=== PATIENT | male | born 1965 | race Caucasian/White ===

== ENCOUNTER → 2016-11-21 | Outpatient (CLI) | payer BC ==
[~2016-11-21] MED LIST: AMPH30CA6 PO; CITA20TA12 PO; MONT10TA21 PO; OLME20TA21 PO; OMEP-10 GT
--- NOTE | 2016-11-21 15:27 | Diagnostic Imaging Report ---
INDICATION: Left hip pain. FINDINGS: Two views of the left hip show no fracture, dislocation, or other acute bony abnormality. There is narrowing of the hip. There is considerable hypertrophic spurring of the femoral head. No avascular necrosis is evident. IMPRESSION: There are degenerative changes present. No acute abnormality is seen. Dictated by: Dictated on workstation # [id number]
== END ==
LOC: RAD 14:41
PROVIDERS: ATTEND Family Medicine
DX: M16.12 Unilateral primary osteoarthritis, left hip (principal)
CPT/HCPCS: 73502

== ENCOUNTER 2017-04-04 14:58 | Outpatient (RCR) | payer BC | END 2017-05-09 14:59 | disposition home or self-care (01) | PROVIDERS: ATTEND Orthopaedic Surgery | DX: Z47.1 Aftercare following joint replacement surgery (principal); Z96.642 Presence of left artificial hip joint ==

== ENCOUNTER 2021-09-21 02:24 | Inpatient (IN) | payer BC ==
[~2021-09-21] VITALS: Ht 167.7 cm; Wt 121.2 kg
[2021-09-21 02:46] LABS: BASOPHILS # (AUTO) 0.1 10^3/uL (0.0-0.1); BASOPHILS % (AUTO) 1 % (0-10); EOSINOPHILS # (AUTO) 0.4 10^3/uL (0.0-0.3); EOSINOPHILS % (AUTO) 3 % (0-10); HEMATOCRIT 41 % (40-54); HEMOGLOBIN 13.3 g/dL (13.3-17.7); LYMPHOCYTES # (AUTO) 1.5 10^3/uL (1.0-4.0); LYMPHOCYTES % (AUTO) 12 % (12-44); MEAN CORPUSCULAR HEMOGLOBIN 29 pg (25-34); MEAN CORPUSCULAR HGB CONC 32 g/dL (32-36); MEAN CORPUSCULAR VOLUME 91 fL (80-99); MONOCYTES # (AUTO) 0.8 10^3/uL (0.0-1.0); MONOCYTES % (AUTO) 7 % (0-12); NEUTROPHILS # (AUTO) 9.4 10^3/uL (1.8-7.8); NEUTROPHILS % (AUTO) 78 % (42-75); PLATELET COUNT 256 10^3/uL (130-400); WHITE BLOOD COUNT 12.1 10^3/uL (4.3-11.0)
--- NOTE | 2021-09-21 02:50 | ED Respiratory ---
General Chief Complaint: Respiratory Problems Stated Complaint: SOB Source: patient (BERNARDO ROJO DO) History of Present Illness Date Seen by Provider: Sep 21, 2021 Time Seen by Provider: 02:35 Initial Comments PT ARRIVES VIA POV FROM HOME C/O SHORTNESS OF BREATH SINCE SATURDAY NIGHT 09/19/21 WORSE WITH LAYING DOWN, OR WITH EXERTION NO CHEST PAIN NO COUGH--JUST FEELS LIKE HE HAS TO CLEAR HIS THROAT NO FEVER/SWEATS/CHILLS HANDS HAVE BEEN SWOLLEN BUT DOES NOT HAVE ANY SWELLING IN LEGS/ FEET OR PAIN IN CALVES NO GI SYMPTOMS STATES HE STARTED A NEW JOB ABOUT 2 MONTHS AGO, AND IS MUCH LESS STRESSFUL THAN HIS PREVIOUS JOB AT [employer] STATES YESTERDAY, HE FELT FINE ALL DAY AT WORK, THEN WHEN HE GOT HOME, WAS WALKING UP THE STAIRS AND FELT SHORT OF BREATH HAS NOT BEEN ABLE TO SLEEP THE LAST 2 NIGHTS DUE TO SHORTNESS OF BREATH WHEN HE LAYS DOWN AND WHEN HE IS SLEEPING. PT STATES NO HISTORY OF SIMILAR PT DID HAVE BRONCHOSCOPY IN 2008 FOR COMPLAINT OF CHRONIC SHORTNESS OF BREATH SINCE ADOLESCENCE. ALL WORK UP'S HAVE BEEN NEGATIVE. PT HAS NEVER BEEN PRESCRIBED ANY MEDICATIONS FOR BREATHING SUCH INHALERS OR OXYGEN HAS HTN, HYPOTHYROIDISM, DEPRESSION/ANXIETY NO CHANGES IN MEDICATIONS OR MISSED DOSES OF MEDICATIONS PT IS NON-SMOKER, RARELY DRINKS ALCOHOL, NO DRUG USE HAS HAD COVID-19 VACCINE X 2--SOMETIME IN 2020--DOES NOT RECALL WHAT MONTH HE HAD THEM, BUT THINKS IT HAS BEEN AT LEAST A YEAR. NO KNOWN SICK CONTACTS. PCP: DR. BOLTON (BERNARDO ROJO DO) Allergies and Home Medications Allergies Coded Allergies: No Known Drug Allergies (Verified , 12/25/07) Patient Home Medication List Home Medication List Reviewed: Yes (MARJORIE BEACH MD) Amphet Asp/Amphet/D-Amphet (Adderall Xr 30 Mg Capsule) 30 Mg Cap.sr.24h, 30 MG PO DAILY, (Reported) Entered as Reported by: KRISTINE WHYTE on 02/02/14756 Benicar Hct (Benicar 20 Mg) 20 Mg Tablet, 1 EACH PO DAILY, (Reported) Entered as Reported by: KRISTINE WHYTE on 02/02/14756 Citalopram Hydrobromide (Celexa) 20 Mg Tablet, 20 MG PO DAILY, (Reported) Entered as Reported by: KRISTINE WHYTE on 02/02/14756 Montelukast Sodium (Singulair) 10 Mg Tablet, 10 MG PO DAILY, (Reported) Entered as Reported by: KRISTINE WHYTE on 02/02/14756 Omeprazole (Prilosec 20 Mg) 20 Mg Capsule.dr, 20 MG GT DAILY, (Reported) Entered as Reported by: KRISTINE WHYTE on 02/02/14756 Review of Systems Review of Systems Constitutional: no symptoms reported; No chills, No diaphoresis, No dizziness, No fever EENTM: no symptoms reported Respiratory: see HPI Cardiovascular: No chest pain; edema; No palpitations, No syncope, No vascular heart diseas Gastrointestinal: no symptoms reported Genitourinary: no symptoms reported Musculoskeletal: no symptoms reported Skin: no symptoms reported Psychiatric/Neurological: No Symptoms Reported Hematologic/Lymphatic: No Symptoms Reported Immunological/Allergic: no symptoms reported (BERNARDO ROJO DO) Past Cgszgat-Kbnzkw-Rzansf Hx Patient Social History Tobacco Use?: No Smoking Status: Never a Smoker Use of E-Cig and/or Vaping dev: No Substance use?: No Alcohol Use?: Yes Alcohol type: Beer, Hard Liquor Alcohol Frequency: Rarely Pt feels they are or have been: No (BERNARDO ROJO DO) Immunizations Up To Date Influenza Vaccine Up-to-Date: No; Not Current Second COVID19 Vaccination John: 2020 (BERNARDO ROJO DO) Past Medical History Surgeries: Yes (BRONCHOSCOPY 09/01/2008 ) Tonsillectomy Respiratory: No Cardiac: Yes Hypertension Neurological: No Genitourinary: No Gastrointestinal: No Musculoskeletal: No Endocrine: Yes (OBESITY) Hypothyroidsim HEENT: No Cancer: No Psychosocial: Yes Anxiety, Depression Integumentary: Yes (TAKES FINASTERIDE FOR MALE PATTERN BALDNESS) Blood Disorders: No (BERNARDO ROJO DO) Physical Exam Vital Signs - First Documented 09/21/21 09/21/21 02:34 02:42 Temp 36.0 Pulse 88 Resp 22 B/P (MAP) 186/99 (128) Pulse Ox 94 O2 Delivery Nasal Cannula O2 Flow Rate 2.00 FiO2 94 (MARJORIE BEACH MD) Capillary Refill : (BERNARDO ROJO DO) Height: 5'7.00" Weight: 270lbs. oz. 122.033114bl; BMI Method: General Appearance: WD/WN, no apparent distress, obese, other (TALKS IN FULL SENTENCES, NO DYSPNEA NOTED ON EXAM. ) Neck: non-tender, normal inspection; No carotid bruit Respiratory: normal breath sounds, no respiratory distress, no accessory muscle use, other (+ ORTHOPNEA) Cardiovascular: normal peripheral pulses, regular rate, rhythm, no edema, no JVD, no murmur; No JVD Gastrointestinal: non tender, soft Extremities: normal inspection, no pedal edema, no calf tenderness, normal capillary refill, other Neurologic/Psychiatric: story analyst II-XII nml as tested, no motor/sensory deficits, alert, normal mood/affect, oriented x 3 Skin: normal color, warm/dry (BERNARDO ROJO DO) Progress/Results/Core Measures Suspected Sepsis SIRS Temperature: Pulse: Respiratory Rate: Laboratory Tests 09/21/21 02:40: White Blood Count 12.1H Blood Pressure / Mean: Laboratory Tests 09/21/21 02:40: Creatinine 1.04, INR Comment 1.0, Platelet Count 256, Total Bilirubin 0.5 (BERNARDO ROJO DO) Results/Orders Lab Results Laboratory Tests Test 09/21/21 02:40 Range/Units White Blood Count 12.1 H 4.3-11.0 10^3/uL Red Blood Count 4.54 4.30-5.52 10^6/uL Hemoglobin 13.3 13.3-17.7 g/dL Hematocrit 41 40-54 % Mean Corpuscular Volume 91 80-99 fL Mean Corpuscular Hemoglobin 29 25-34 pg Mean Corpuscular Hemoglobin Concent 32 32-36 g/dL Red Cell Distribution Width 15.0 H 10.0-14.5 % Platelet Count 256 130-400 10^3/uL Mean Platelet Volume 11.0 9.0-12.2 fL Immature Granulocyte % (Auto) 0 % Neutrophils (%) (Auto) 78 H 42-75 % Lymphocytes (%) (Auto) 12 12-44 % Monocytes (%) (Auto) 7 0-12 % Eosinophils (%) (Auto) 3 0-10 % Basophils (%) (Auto) 1 0-10 % Neutrophils # (Auto) 9.4 H 1.8-7.8 10^3/uL Lymphocytes # (Auto) 1.5 1.0-4.0 10^3/uL Monocytes # (Auto) 0.8 0.0-1.0 10^3/uL Eosinophils # (Auto) 0.4 H 0.0-0.3 10^3/uL Basophils # (Auto) 0.1 0.0-0.1 10^3/uL Immature Granulocyte # (Auto) 0.0 0.0-0.1 10^3/uL Erythrocyte Sedimentation Rate 14 0-30 MM/HR Prothrombin Time 13.6 12.2-14.7 SEC INR Comment 1.0 0.8-1.4 Activated Partial Thromboplast Time 34 24-35 SEC D-Dimer 0.63 H 0.00-0.49 UG/ML Sodium Level 138 135-145 MMOL/L Potassium Level 4.1 3.6-5.0 MMOL/L Chloride Level 104 98-107 MMOL/L Carbon Dioxide Level 23 21-32 MMOL/L Anion Gap 11 5-14 MMOL/L Blood Urea Nitrogen 19 H 7-18 MG/DL Creatinine 1.04 0.60-1.30 MG/DL Estimat Glomerular Filtration Rate 83 BUN/Creatinine Ratio 18 Glucose Level 115 H 70-105 MG/DL Calcium Level 9.1 8.5-10.1 MG/DL Corrected Calcium 9.0 8.5-10.1 MG/DL Magnesium Level 2.1 1.6-2.4 MG/DL Total Bilirubin 0.5 0.1-1.0 MG/DL Aspartate Amino Transf (AST/SGOT) 28 5-34 U/L Alanine Aminotransferase (ALT/SGPT) 33 0-55 U/L Alkaline Phosphatase 95 40-136 U/L Total Creatine Kinase 389 H 30-200 U/L Creatine Kinase MB 6.0 <6.6 NG/ML Myoglobin 86.6 10.0-92.0 NG/ML Troponin I < 0.028 <0.028 NG/ML C-Reactive Protein High Sensitivity 0.50 0.00-0.50 MG/DL B-Type Natriuretic Peptide 271.0 H <100.0 PG/ML Total Protein 7.2 6.4-8.2 GM/DL Albumin 4.1 3.2-4.5 GM/DL Influenza Type A (RT-PCR) Not Detected Not Detecte Influenza Type B (RT-PCR) Not Detected Not Detecte SARS-CoV-2 RNA (RT-PCR) Detected H Not Detecte (MARJORIE BEACH MD) Medications Given in ED Current Medications Medications Dose Ordered Sig/Allison Route Start Time Stop Time Status Last Admin Dose Admin Aspirin 324 mg ONCE ONCE PO 09/21/21 03:45 09/21/21 03:46 DC 09/21/21 03:37 324 MG Dexamethasone Sodium Phosphate 10 mg ONCE ONCE IV 09/21/21 03:15 09/21/21 03:16 DC 09/21/21 03:37 10 MG Furosemide 40 mg ONCE ONCE IVP 09/21/21 03:30 09/21/21 03:31 DC 09/21/21 03:37 40 MG Iohexol 100 ml ONCE ONCE IV 09/21/21 04:45 09/21/21 04:50 DC 09/21/21 04:36 100 ML Nitroglycerin 1 inch ONCE ONCE TOP 09/21/21 03:30 09/21/21 03:31 DC 09/21/21 03:37 1 INCH Sodium Chloride 100 ml ONCE ONCE IV 09/21/21 04:45 09/21/21 04:50 DC 09/21/21 04:36 80 ML (MARJORIE BEACH MD) Vital Signs/I&O 09/21/21 09/21/21 09/21/21 02:34 02:42 02:42 Temp 36.0 Pulse 88 Resp 22 B/P (MAP) 186/99 (128) Pulse Ox 94 90 O2 Delivery Nasal Cannula Room Air Room Air O2 Flow Rate 2.00 FiO2 94 (MARJORIE BEACH MD) Vital Signs/I&O Capillary Refill : (BERNARDO ROJO DO) Progress Note : Progress Note O2 SAT 84% ON ARRIVAL WHEN HE LAID DOWN ON ER CART, THEN UP 90% ON ROOM AIR, WHILE SITTING UP--PLACED ON O2 AT 2L/NC AND SATS UP TO MID 90'S PPE WORN AT ALL TIMES COVID AND FLU TESTING DONE GIVEN: -DECADRON -LASIX -NITROPASTE FOR ELEVATED BLOOD PRESSURE MARKED DELAY IN OBTAINING CT SCAN, AND AN EXTREMELY LONG DELAY IN OBTAINING RADIOLOGIST REPORT. CALLED XRAY DEPT MULTIPLE TIMES REGARDING THESE ISSUES. [id number]--CALLED [facility]. THERE ARE NO IN-HOUSE RADIOLOGISTS THERE OR HERE AT THIS TIME. STILL AWAITING STAT RAD REPORT (BERNARDO ROJO DO) Progress Note : Time: 08:14 Progress Note Nursing staff requested that I speak with the patient as he was desiring to leave AGAINST MEDICAL ADVICE and not wanting to be admitted. I reviewed patient's chart, labs, and imaging. It appears that he had some degree of pulmonary edema on assessment which was likely contributing to his hypoxia and shortness of breath. He has diuresed at least 2 L of urine with the Lasix treatment and has also been treated with nitro paste. I explained to the patien t that these measures have likely improved his respiratory status and his comfort. His oxygen saturation is presently 95% on room air. I explained to the patient that the pulmonary edema, hypoxia, and shortness of breath could very rapidly rebound in the absence of close monitoring and appropriate care. I advised that he stay in the hospital until we are sure this situation is s tabilized. I advised that returning home at this time would put him at risk for severe worsening of condition and possibly sudden from respiratory failure. After this explanation, he decided to stay for admission. There was question about therapeutic Lovenox order previously given. The CT scan was read as negative for pulmonary embolus. Dr. Bolton was updated and stated she did not desire a therapeutic dose of Lovenox at this time given the negative CT report. (MARJORIE BEACH MD) ECG Initial ECG Impression Date: Sep 21, 2021 Initial ECG Impression Time: 02:45 Initial ECG Rate: 79 Initial ECG Rhythm: Normal Sinus (BERNARDO ROJO DO) Diagnostic Imaging Comments CXR--DIFFUSE BILATERAL INFILTRATES, PENDING RADIOLOGIST REVIEW Reviewed: Reviewed by Me (BERNARDO ROJO DO) Departure Communication (Admissions) [id number]--SPOKE WITH DR. BOLTON, ACCEPTS PT FOR ADMIT. STILL DO NOT HAVE CT CHEST ANGIOGRAM REPORT BACK AT THIS TIME. WILL GIVE A DOSE OF LOVENOX HERE AND SHE WILL FOLLOW UP WITH CT REPORT. (BERNARDO ROJO DO) Impression Primary Impression: Pneumonia due to COVID-19 virus Additional Impressions: Acute hypoxemic respiratory failure due to COVID-19 Uncontrolled hypertension CHF (congestive heart failure) Disposition: ADMITTED INPATIENT Condition: Stable Admissions Decision to Admit Reason: Admit from ER (General) Decision to Admit/Date: Sep 21, 2021 Time/Decision to Admit Time: 06:35 (BERNARDO ROJO DO) Departure-Patient Inst. Referrals: BRITTANEY BOLTON MD (PCP/Family) Primary Care Physician BERNARDO ROJO DO Sep 21, 2021 02:50 MARJORIE BEACH MD Sep 21, 2021 08:18
[2021-09-21 03:03] LABS: ALBUMIN 4.1 GM/DL (3.2-4.5); CHLORIDE 104 MMOL/L (98-107); POTASSIUM 4.1 MMOL/L (3.6-5.0); SODIUM 138 MMOL/L (135-145)
[2021-09-21 03:04] LABS: CALCIUM 9.1 MG/DL (8.5-10.1); ERYTHROCYTE SEDIMENTATION RATE 14 MM/HR (0-30)
[2021-09-21 03:05] LABS: GLUCOSE 115 MG/DL (70-105); TOTAL PROTEIN 7.2 GM/DL (6.4-8.2)
[2021-09-21 03:06] LABS: CARBON DIOXIDE 23 MMOL/L (21-32)
[2021-09-21 03:07] LABS: BILIRUBIN,TOTAL 0.5 MG/DL (0.1-1.0); FIBRIN DEGRADATION PRODUCTS 0.63 UG/ML (0.00-0.49); PROTHROMBIN TIME PATIENT 13.6 SEC (12.2-14.7)
[2021-09-21 03:09] LABS: ALKALINE PHOSPHATASE 95 U/L (40-136); CREATININE SERUM 1.04 MG/DL (0.60-1.30); GFR ESTIMATED 83
[2021-09-21 03:10] LABS: BUN/CREATININE RATIO 18
[2021-09-21 03:12] LABS: ALANINE AMINOTRANSFERASE 33 U/L (0-55); MAGNESIUM 2.1 MG/DL (1.6-2.4)
[2021-09-21 03:13] LABS: CREATINE KINASE 389 U/L (30-200)
[2021-09-21] MEDS ORDERED: FUROSEMIDE 40 MG/4 ML INJ (LASIX) IVP ONE (03:30)
[2021-09-21] MEDS ORDERED: NITROGLYCERIN 2% OINT 1 GM UNIT DOSE PACKET TOP ONE (03:30)
[2021-09-21] MEDS ORDERED: ASPIRIN 81 MG CHEW (CHILDREN'S ASA) PO ONE (03:45)
[2021-09-21] MEDS ORDERED: NS 100 ML (IVPB) BAG IV ONE (04:45)
[2021-09-21] MEDS ORDERED: IOHEXOL 350 MG/ML 100 ML (OMNIPAQUE 350) VIAL IV ONE (04:45)
[2021-09-21] MEDS ORDERED: HOLD METFORMIN - RECEIVED CONTRAST 20 ML VIAL IV SCH (04:45)
--- NOTE | 2021-09-21 06:41 | Diagnostic Imaging Report ---
PROCEDURE: CT angiography of the chest with contrast. TECHNIQUE: Multiple contiguous axial images were obtained through the chest after uneventful bolus administration of intravenous contrast. 3D reconstructed CTA MIP acquisitions were also performed. Auto Exposure Controls were utilized during the CT exam to meet ALARA standards for radiation dose reduction. INDICATION: Shortness of breath. FINDINGS: There is good opacification of pulmonary arteries. There are no filling defects to suggest pulmonary emboli. Aorta shows no evidence of aneurysm or dissection. There are scattered patchy groundglass infiltrates in lungs bilaterally. No pleural effusion. No masses. No mediastinal or hilar adenopathy of pathologic size. No pleural effusion or pericardial effusion. IMPRESSION: 1. No evidence of pulmonary emboli. 2. Patchy groundglass infiltrates noted within the lungs bilaterally. Dictated by: Dictated on workstation # [id number]
[2021-09-21] MEDS ORDERED: ENOXAPARIN 120 MG/0.8 ML (LOVENOX) SQ ONE (06:45)
--- NOTE | 2021-09-21 06:48 | Diagnostic Imaging Report ---
INDICATION: Respiratory distress. Dyspnea. COMPARISON: 08/19/2012 FINDINGS: Portable chest. There is mild cardiac enlargement. Increased interstitial markings noted bilaterally. The pulmonary vasculature slightly prominent. No pneumothorax or pleural effusion. IMPRESSION: Development of cardiomegaly and prominent interstitial markings raising concern of pulmonary edema. Dictated by: Dictated on workstation # [id number]
[2021-09-21] MEDS ORDERED: CATHETER FLUSH 10 ML SYR IV PRN (09:00)
--- NOTE | 2021-09-21 09:08 | History & Physical ---
History of Present Illness History of Present Illness Reason for visit/HPI Pt is a 56 y/o male who is known to me from clinic. [place] reports that he had been feeling "pretty good" and was walking a lot at work for the past two days, but he was starting to feel slightly short of breath Saturday when lying down to sleep, but was OK at work walking around on Saturday so he was not worried. Then yesterday evening when he was going upstairs he was short of breath and was increasingly short of breath and uncomfortable overnight. He finally was so worried that he came into the hospital for evaluation. He reports that he "barely" made it into the ER doors from the parking lot. He was evaluated, found to have acute covid and pulmonary edema. He was given IV lasix, breathing treatment, Oxygen therapy and was feeling so good he was planning on leaving AMA until he was talked into staying in the hospital for treatment by the ER physician. [place] reports that he is feeling much better at this time and understands he is sick but does not feel too bad at this time. Date of Admission Sep 21, 2021 at 07:18 Date Seen by a Provider: Sep 21, 2021 Time Seen by a Provider: 09:30 Attending Physician Brittaney Bolton MD Admitting Physician Admitting Physician: Brittaney Bolton MD Attending Physician: Brittaney Bolton MD Consult Allergies and Home Medications Allergies Coded Allergies: No Known Drug Allergies (Verified , 12/25/07) Patient Home Medication List Home Medication List Reviewed: Yes Duloxetine HCl (Duloxetine HCl) 60 Mg Capsule.dr, 60 MG PO DAILY, (Reported) Entered as Reported by: JOSELUIS JC on 09/21/211147 Last Action: Converted Finasteride (Finasteride) 1 Mg Tablet, 1 MG PO DAILY, (Reported) Entered as Reported by: JOSELUIS JC on 09/21/211147 Last Action: Converted Levothyroxine Sodium (Levothyroxine Sodium) 100 Mcg Tablet, 100 MG PO ALONZO,MO,WE,FR,SA, (Reported) Entered as Reported by: JOSELUIS JC on 09/21/211147 Last Action: Continued Levothyroxine Sodium (Levothyroxine Sodium) 100 Mcg Tablet, 150 MCG PO , (Reported) Entered as Reported by: JOSELUIS JC on 09/21/211147 Last Action: Continued Losartan Potassium (Losartan Potassium) 100 Mg Tablet, 100 MG PO DAILY, (Reported) Entered as Reported by: JOSELUIS JC on 09/21/211147 Last Action: Continued Metoprolol Succinate (Metoprolol Succinate) 25 Mg Tab.er.24h, 50 MG PO DAILY, (Reported) Entered as Reported by: JOSELUIS JC on 09/21/211147 Last Action: Held Discontinued Medications Amphet Asp/Amphet/D-Amphet (Adderall Xr 30 Mg Capsule) 30 Mg Cap.sr.24h, 30 MG PO DAILY, (Reported) Discontinued Reason: No Longer Taking Entered as Reported by: KRISTINE WHYTE on 02/02/14756 Last Action: Discontinued Benicar Hct (Benicar 20 Mg) 20 Mg Tablet, 1 EACH PO DAILY, (Reported) Discontinued Reason: No Longer Taking Entered as Reported by: KRISTINE WHYTE on 02/02/14756 Last Action: Discontinued Citalopram Hydrobromide (Celexa) 20 Mg Tablet, 20 MG PO DAILY, (Reported) Discontinued Reason: No Longer Taking Entered as Reported by: KRISTINE WHYTE on 02/02/14756 Last Action: Discontinued Montelukast Sodium (Singulair) 10 Mg Tablet, 10 MG PO DAILY, (Reported) Discontinued Reason: No Longer Taking Entered as Reported by: KRISTINE WHYTE on 02/02/14756 Last Action: Discontinued Omeprazole (Prilosec 20 Mg) 20 Mg Capsule.dr, 20 MG GT DAILY, (Reported) Discontinued Reason: No Longer Taking Entered as Reported by: KRISTINE WHYTE on 02/02/14756 Last Action: Discontinued Past Skcfbdl-Ipyxud-Zlgthd Hx Patient Social History Marrital Status: Living Status: lives in [place] with his spouse Employed/Student: employed Tobacco Use?: No Smoking Status: Never a Smoker Use of E-Cig and/or Vaping dev: No Substance use?: No Alcohol Use?: Yes Alcohol type: Beer, Hard Liquor Alcohol Frequency: Rarely Pt feels they are or have been: No Immunizations Up To Date Second COVID19 Vaccination John: 2020 Tetanus Booster (TDap): Unknown Current Status Advance Directives: No Primary Language: Azeri Preferred Spoken Language: Azeri Implanted or Applied Medical D: None Past Medical History Surgeries: Tonsillectomy Currently Using CPAP: No Currently Using BIPAP: No Hypertension Sexually Transmitted Disease: No HIV/AIDS: No Arthritis Hypothyroidsim Loss of Vision: Denies Hearing Impairment: Denies Anxiety, Depression Blood Disorders: No Family Medical History Reviewed and Corrections made Heart Disease, CAD Over 55 Years Old, Hypertension Review of Systems Constitutional: No chills, No diaphoresis, No dizziness; malaise, weakness EENTM: No hoarseness, No mouth pain, No mouth swelling, No nose congestion, No throat pain, No throat swelling Respiratory: dyspnea on exertion, orthopnea, short of breath Cardiovascular: No chest pain; edema (of hands); No palpitations, No syncope, No vascular heart diseas Gastrointestinal: No abdominal pain, No constipation, No diarrhea, No dysphagia, No nausea, No vomiting Genitourinary: no symptoms reported Musculoskeletal: muscle weakness (of legs slightly) Skin: no symptoms reported Psychiatric/Neurological: No Symptoms Reported All Other Systems Reviewed Negative Unless Noted: Yes Physical Exam Vital Signs Vital Signs - First Documented 09/21/21 09/21/21 02:34 02:42 Temp 36.0 Pulse 88 Resp 22 B/P (MAP) 186/99 (128) Pulse Ox 94 O2 Delivery Nasal Cannula O2 Flow Rate 2.00 FiO2 94 Capillary Refill : Less Than 3 Seconds Height, Weight, BMI Height: 5'7.00" Weight: 270lbs. oz. 122.963573lb; 43.00 BMI Method: General Appearance: No Apparent Distress, WD/WN HEENT: PERRL/EOMI, Pharynx Normal Neck: Full Range of Motion, Normal Inspection, Non Tender, Supple Respiratory: Chest Non Tender, Decreased Breath Sounds (at bases, slight crackles in bases) Cardiovascular: Regular Rate, Rhythm, No Murmur, Normal Peripheral Pulses Gastrointestinal: Normal Bowel Sounds, No Organomegaly, No Pulsatile Mass, Non Tender, Soft Rectal: Deferred Back: Normal Inspection, No Vertebral Tenderness Extremity: Normal Capillary Refill, Pedal Edema (trace at ankles and hands) Neurologic/Psychiatric: Alert, Oriented x3, No Motor/Sensory Deficits, Normal Mood/Affect Skin: Normal Color, Warm/Dry Lymphatic: No Adenopathy Assessment/Plan Assessment and Plan Acute Covid Acute Covid related respiratory distress Acute fluid overload with elevated BNP Chronic Hypertension Family Hx of CAD with Heart failure in his grandmother GERD Anxiety Acute Covid with related respiratory distress -pt admitted to the hospital, iv antibiotics, breathing treatments, and steroids initiated. - will also initiate paxlovid, for emergency use authorization, discussed with pt, he is interested in treatment for acute covid syndrome with this medication. Pharmacy to dispense and relabel for home use as pt will continue treatment outside of hospital upon discharge. - medication eval did not reveal any medications contraindicating use of paxlovid. Acute fluid overload with elevated BNP - this was the reason for short term use of his oxygen on admission, once fluid was off loaded, pt did not require continued oxygen therapy. - echo pending - no evidence of PE on CT angiogram done through ER. Chronic Hypertension - low dose betablocker restarted, will wait on restarting all of the other home meds until tomorrow. Family Hx of CAD with Heart failure in his grandmother - will get pt set up for outpatient workup - stress testing, etc. GERD - resume home meds. Anxiety - resume home meds. dvt prophylaxis with lovenox and scds gi prophylaxis with home meds. Admission Diagnosis Acute Covid Acute Covid related respiratory distress Acute fluid overload with elevated BNP Chronic Hypertension Family Hx of CAD with Heart failure in his grandmother GERD Anxiety Admission Status: Inpatient Order (span 2 midnights) Reason for Inpatient Admission: anticipate at least 48 hours to 72 hours in the hospital for treatment and stabilization of symptoms of heart failure and covid BRITTANEY BOLTON MD Sep 21, 2021 09:08
[2021-09-21] MEDS ORDERED: ACETAMINOPHEN 500 MG TAB (TYLENOL) PO PRN (10:00)
[2021-09-21] MEDS ORDERED: NITROGLYCERIN 2% OINT 1 GM UNIT DOSE PACKET TOP SCH (10:00)
[2021-09-21] MEDS ORDERED: IBUPROFEN 800 MG (MOTRIN) TAB PO PRN (10:00)
[2021-09-21] MEDS ORDERED: PHARMACY TO DOSE PO SCH (10:45)
[2021-09-21] MEDS ORDERED: AZITHROMYCIN INJECTION 500 MG in NS (IVPB) 250 ML IV NR (11:00)
[2021-09-21] MEDS ORDERED: NIRMATRELVIR/RITONAVIR (PAXLOVID) TABLET PO SCH (11:00)
[2021-09-21 11:27] VITALS: BP 166/85
[2021-09-21] MEDS ORDERED: LEVO100T7 PO ×2 (11:48)
[2021-09-21] MEDS ORDERED: DULO60CA59 PO (11:48)
[2021-09-21] MEDS ORDERED: LOSA100T57 PO (11:48)
[2021-09-21] MEDS ORDERED: FINA1TAB16 PO (11:48)
[2021-09-21] MEDS ORDERED: MTP25TSR PO (11:48)
[2021-09-21] MEDS: cefTRIAXone 1 GM PRE-MIX 50 ML IV SCH (11:56)
[2021-09-21] MEDS: meTOprolol TARTRATE 25 MG (LOPRESSOR) TABLET PO SCH ×2 (11:56→20:15)
[2021-09-21] MEDS: NIRMATRELVIR/RITONAVIR (PAXLOVID) TABLET PO SCH ×2 (12:00→20:16)
[2021-09-21 13:24] VITALS: BP 166/85
[2021-09-21] MEDS ORDERED: RT-ALBUTEROL HFA 8.5 GM INHALER IH PRN (13:45)
[2021-09-21] MEDS: CATHETER FLUSH 10 ML SYR IV SCH ×2 (13:58→21:32)
[2021-09-21 18:00] VITALS: BP 156/78
[2021-09-21] MEDS: RT-ALBUTEROL HFA 8.5 GM INHALER IH SCH (20:05)
[2021-09-21] MEDS: guaiFENesin (MUCINEX) 600 MG TAB PO SCH (20:15)
[2021-09-22] VITALS: BP 139/73
[2021-09-22 04:04] VITALS: BP 152/79
[2021-09-22] MEDS: CATHETER FLUSH 10 ML SYR IV SCH (05:24)
[2021-09-22 05:53] LABS: BASOPHILS % (AUTO) 0 % (0-10); EOSINOPHILS % (AUTO) 0 % (0-10); HEMATOCRIT 38 % (40-54); HEMOGLOBIN 12.6 g/dL (13.3-17.7); LYMPHOCYTES # (AUTO) 0.9 10^3/uL (1.0-4.0); LYMPHOCYTES % (AUTO) 6 % (12-44); MEAN CORPUSCULAR HEMOGLOBIN 30 pg (25-34); MEAN CORPUSCULAR HGB CONC 33 g/dL (32-36); MEAN CORPUSCULAR VOLUME 90 fL (80-99); MEAN PLATELET VOLUME 11.3 fL (9.0-12.2); MONOCYTES # (AUTO) 0.5 10^3/uL (0.0-1.0); MONOCYTES % (AUTO) 3 % (0-12); NEUTROPHILS # (AUTO) 14.3 10^3/uL (1.8-7.8); NEUTROPHILS % (AUTO) 91 % (42-75); PLATELET COUNT 259 10^3/uL (130-400); WHITE BLOOD COUNT 15.8 10^3/uL (4.3-11.0)
[2021-09-22 06:07] LABS: POTASSIUM 4.1 MMOL/L (3.6-5.0)
[2021-09-22 06:08] LABS: CALCIUM 9.2 MG/DL (8.5-10.1)
[2021-09-22 06:12] LABS: CREATININE SERUM 0.93 MG/DL (0.60-1.30)
[2021-09-22 06:15] LABS: LYMPHOCYTES % (MANUAL) 4 %; MONOCYTES % (MANUAL) 3 %; NEUTROPHILS % (MANUAL) 93 %
[2021-09-22 06:16] LABS: ANISOCYTOSIS SLIGHT; POIKILOCYTOSIS SLIGHT; POLYCHROMASIA SLIGHT
--- NOTE | 2021-09-22 07:49 | Diagnostic Imaging Report ---
EXAMINATION: Chest 1 view HISTORY: COVID pneumonia COMPARISON: 09/21/2021 FINDINGS: There are mild bilateral airspace opacities improved from prior exam. No pneumothorax. Heart size is normal. No pleural effusion. IMPRESSION: 1. Improved now mild bilateral airspace opacities. Report was faxed to [facility] by renee at 7:49am. Dictated by: Dictated on workstation # [id number]
[2021-09-22] MEDS ORDERED: ENOXAPARIN 40 MG/0.4 ML (LOVENOX) SYR SC SCH ×2 (08:00→21:00)
[2021-09-22 08:02] VITALS: BP 157/82
[2021-09-22] MEDS: meTOprolol TARTRATE 25 MG (LOPRESSOR) TABLET PO SCH (08:05)
[2021-09-22] MEDS: guaiFENesin (MUCINEX) 600 MG TAB PO SCH (08:05)
[2021-09-22] MEDS: NIRMATRELVIR/RITONAVIR (PAXLOVID) TABLET PO SCH (08:06)
[2021-09-22] MEDS: RT-ALBUTEROL HFA 8.5 GM INHALER IH SCH (08:28)
[2021-09-22] MEDS ORDERED: DULoxetine 30 MG (CYMBALTA) CAP PO SCH (09:00)
[2021-09-22] MEDS ORDERED: FINASTERIDE 1 MG PO SCH (09:00)
[2021-09-22] MEDS ORDERED: LEVOTHYROXINE 100 MCG (LEVOTHROID) TAB PO SCH (09:00)
[2021-09-22] MEDS ORDERED: AZITHROMYCIN 250 MG TAB (ZITHROMAX) PO SCH (09:00)
[2021-09-22] MEDS ORDERED: LOSARTAN 100 MG (COZAAR) TABLET PO SCH (09:00)
[2021-09-22] MEDS: cefTRIAXone 1 GM PRE-MIX 50 ML IV SCH (10:13)
--- NOTE | 2021-09-22 10:15 | Discharge Summary ---
Diagnosis/Chief Complaint Date of Admission Sep 21, 2021 at 07:18 Date of Discharge 09/22/21 Discharge Date: Sep 22, 2021 Discharge Time: 09:45 Admission Diagnosis Admission Diagnosis Acute Covid Acute Covid related respiratory distress Acute fluid overload with elevated BNP Chronic Hypertension Family Hx of CAD with Heart failure in his grandmother GERD Anxiety Discharge Diagnosis Acute Covid Acute Covid related respiratory distress Acute fluid overload with elevated BNP Chronic Hypertension Family Hx of CAD with Heart failure in his grandmother GERD Anxiety Reason Hospital Visit Pt is a 56 y/o male who is known to me from clinic. [place] reports that he had been feeling "pretty good" and was walking a lot at work for the past two days, but he was starting to feel slightly short of breath Saturday when lying down to sleep, but was OK at work walking around on Saturday so he was not worried. Then yesterday evening when he was going upstairs he was short of breath and was increasingly short of breath and uncomfortable overnight. He finally was so worried that he came into the hospital for evaluation. He reports that he "barely" made it into the ER doors from the parking lot. He was evaluated, found to have acute covid and pulmonary edema. He was given IV lasix, breathing treatment, Oxygen therapy and was feeling so good he was planning on leaving AMA until he was talked into staying in the hospital for treatment by the ER physician. [place] reports that he is feeling much better at this time and understands he is sick but does not feel too bad at this time. Discharge Summary Discharge Physical Examination Allergies: Coded Allergies: No Known Drug Allergies (Verified , 12/25/07) Vitals & I&Os Vital Signs Date Time Temp Pulse Resp B/P (MAP) Pulse Ox O2 Delivery O2 Flow Rate FiO2 09/22/21 08:38 96 Room Air 09/22/21 08:28 0.00 09/22/21 08:02 36.2 74 15 157/82 (107) 09/21/21 13:24 94 General Appearance: Alert, Oriented X3, Cooperative, No Acute Distress HEENT: Atraumatic, PERRLA, EOMI, Mucous Memb Moist/[place] Respiratory: Clear to Auscultation, Normal Air Movement Cardiovascular: Regular Rate, Normal S1, Normal S2 Abdominal: Normal Bowel Sounds, Soft, No Tenderness Extremities: No Clubbing, No Cyanosis, No Edema Skin: No Rashes, No Breakdown, No Significant Lesion Neuro: Normal Gait, Normal Speech, Strength at 5/5 X4 Ext, Cranial Nerves 3-12 NL Psych/Mental Status: Mental Status NL, Mood NL Hospital Course Acute Covid Acute Covid related respiratory distress Acute fluid overload with elevated BNP Chronic Hypertension Family Hx of CAD with Heart failure in his grandmother GERD Anxiety Acute Covid with related respiratory distress -pt admitted to the hospital, iv antibiotics, breathing treatments, and steroids initiated. - will also initiate paxlovid, for emergency use authorization, discussed with pt, he is interested in treatment for acute covid syndrome with this medication. Pharmacy to dispense and relabel for home use as pt will continue treatment outside of hospital upon discharge. - medication eval did not reveal any medications contraindicating use of paxlovid. Acute fluid overload with elevated BNP - this was the reason for short term use of his oxygen on admission, once fluid was off loaded, pt did not require continued oxygen therapy. - no evidence of PE on CT angiogram done through ER. Echo - "technically difficult" - EF - 60 - 65%, rest of study was not well imaged. - will need to be repeated in a few months with appt with cardiology Chronic Hypertension - low dose betablocker restarted, will wait on restarting all of the other home meds until tomorrow. Family Hx of CAD with Heart failure in his grandmother - will get pt set up for outpatient workup - stress testing, etc. GERD - resume home meds. Anxiety - resume home meds. dvt prophylaxis with lovenox and scds gi prophylaxis with home meds. pt advised to quarantine for another 5 - 7 days at home - his family is out of town and I have advised that if possible they not come back into the house for another 3-4 days after they get home Pending Labs Laboratory Tests 09/22/21 05:25: White Blood Count 15.8, Red Blood Count 4.20, Hemoglobin 12.6, Hematocrit 38, Mean Corpuscular Volume 90, Mean Corpuscular Hemoglobin 30, Mean Corpuscular Hemoglobin Concent 33, Red Cell Distribution Width 14.9, Platelet Count 259, Mean Platelet Volume 11.3, Immature Granulocyte % (Auto) 0, Neutrophils (%) (Au to) 91, Lymphocytes (%) (Auto) 6, Monocytes (%) (Auto) 3, Eosinophils (%) (Auto) 0, Basophils (%) (Auto) 0, Neutrophils # (Auto) 14.3, Lymphocytes # (Auto) 0.9, Monocytes # (Auto) 0.5, Eosinophils # (Auto) 0.0, Basophils # (Auto) 0.0, Immature Granulocyte # (Auto) 0.1, Neutrophils % (Manual) 93, Lymphocytes % (Manual) 4, Monocytes % (Manual) 3, Polychromasia SLIGHT, Poikilocytosis SLIGHT, Anisocytosis SLIGHT, Sodium Level 138, Potassium Level 4.1, Chloride Level 104, Carbon Dioxide Level 23, Anion Gap 11, Blood Urea Nitrogen 23, Creatinine 0.93, Estimat Glomerular Filtration Rate 95, BUN/Creatinine Ratio 25, Glucose Level 135, Calcium Level 9.2 Discharge Condition at discharge IMPROVED Instructions to patient/family Please see electronic discharge instructions given to patient. Discharge Medications Reviewed and agree with Discharge Medication list on patient's Discharge Instruction sheet BRITTANEY HSEA MD Sep 22, 2021 10:15
[2021-09-22] MEDS ORDERED: AZIT250T12 PO (10:23)
[2021-09-22] MEDS ORDERED: GUAI600T43 PO (10:23)
[2021-09-22] MEDS ORDERED: ALBU8.5H9 IH (10:23)
[2021-09-22] MEDS ORDERED: NIRM1TAB PO (10:23)
[2021-09-22] MEDS ORDERED: ASPI-1238 PO (10:23)
--- NOTE | 2021-09-22 10:26 | Discharge Inst-Simple/Standard ---
Discharge Inst-Standard Reconcile Patient Problems Problems Reviewed?: Yes Discharge Medications New, Converted or Re-Newed RX: Transmitted to Pharmacy Patient Instructions/Follow Up Plan of Care/Instructions/FU: 1 W[facility] Activity as Tolerated: Yes Discharge Diet: Low Sodium Diet Return to The Hospital For: ANY CONCERN FOR WORSENING SHORTNESS OF BREATH, WEAKNESS, OR OTHER SYMPTOMS THAT ARE LIFE THREATENING. Medication List: Active Scripts Active Aspirin EC (Aspirin) 81 Mg Tablet.dr 81 Mg PO DAILY Mucinex (Guaifenesin) 600 Mg Tab.er.12h 600 Mg PO BID Proair Hfa (Albuterol Sulfate) 90 Mcg Hfa.aer.ad 0 Gm IH RTBID 2 PUFFS BID X 7 DAYS, AND MAY USE EVERY 2 HOURS NEEDED FOR SHORTNESS OF BREATH Paxlovid Co-Pack (Eua) (Nirmatrelvir/Ritonavir) 150 Mg X 2-100 Mg Tablet 0 Each PO BID TAKE TWICE DAIY - FINISH BOX - TOTAL NUMBER OF DAYS OF TREATMENT IN THE BOX IS 5 DAYS FROM INITIATION OF THERAPY Azithromycin 250 Mg Tablet 250 Mg PO DAILY Reported Duloxetine HCl 60 Mg Capsule.dr 60 Mg PO DAILY Losartan Potassium 100 Mg Tablet 100 Mg PO DAILY Finasteride 1 Mg Tablet 1 Mg PO DAILY Levothyroxine Sodium 100 Mcg Tablet 150 Mcg PO , TAKES 1 & (100NCG) TABS Levothyroxine Sodium 100 Mcg Tablet 100 Mcg PO ALONZO,MO,WE,FR,SA Metoprolol Succinate 25 Mg Tab.er.24h 50 Mg PO DAILY TAKES 2 (25MG) TABS Lab results: Laboratory Tests Test 09/22/21 05:25 Range/Units White Blood Count 15.8 H 4.3-11.0 10^3/uL Red Blood Count 4.20 L 4.30-5.52 10^6/uL Hemoglobin 12.6 L 13.3-17.7 g/dL Hematocrit 38 L 40-54 % Mean Corpuscular Volume 90 80-99 fL Mean Corpuscular Hemoglobin 30 25-34 pg Mean Corpuscular Hemoglobin Concent 33 32-36 g/dL Red Cell Distribution Width 14.9 H 10.0-14.5 % Platelet Count 259 130-400 10^3/uL Mean Platelet Volume 11.3 9.0-12.2 fL Immature Granulocyte % (Auto) 0 % Neutrophils (%) (Auto) 91 H 42-75 % Lymphocytes (%) (Auto) 6 L 12-44 % Monocytes (%) (Auto) 3 0-12 % Eosinophils (%) (Auto) 0 0-10 % Basophils (%) (Auto) 0 0-10 % Neutrophils # (Auto) 14.3 H 1.8-7.8 10^3/uL Lymphocytes # (Auto) 0.9 L 1.0-4.0 10^3/uL Monocytes # (Auto) 0.5 0.0-1.0 10^3/uL Eosinophils # (Auto) 0.0 0.0-0.3 10^3/uL Basophils # (Auto) 0.0 0.0-0.1 10^3/uL Immature Granulocyte # (Auto) 0.1 0.0-0.1 10^3/uL Neutrophils % (Manual) 93 % Lymphocytes % (Manual) 4 % Monocytes % (Manual) 3 % Polychromasia SLIGHT Poikilocytosis SLIGHT Anisocytosis SLIGHT Sodium Level 138 135-145 MMOL/L Potassium Level 4.1 3.6-5.0 MMOL/L Chloride Level 104 98-107 MMOL/L Carbon Dioxide Level 23 21-32 MMOL/L Anion Gap 11 5-14 MMOL/L Blood Urea Nitrogen 23 H 7-18 MG/DL Creatinine 0.93 0.60-1.30 MG/DL Estimat Glomerular Filtration Rate 95 BUN/Creatinine Ratio 25 Glucose Level 135 H 70-105 MG/DL Calcium Level 9.2 8.5-10.1 MG/DL My orders: Orders - BRITTANEY SHEA MD Nirmatrelvir/Ritonavir (Eua) (Paxlovid C (09/21/21 11:00) Activity (09/21/21 10:33) Notify Physician: Vital Signs (09/21/21 10:33) Sequential Compression Device (09/21/21 10:33) Vital Signs: Every 4 Hours (Or (09/21/21 10:33) Guaifenesin Tablet (Mucinex Tablet) (09/21/21 21:00) Enoxaparin Injection (Lovenox Injection) (09/22/21 08:00) Notify Physician: Vital Signs (09/21/21 10:33) Incentive Spirometry (Nursing) Q2H (09/21/21 10:33) Ceftriaxone 1 Gm Pre-Mix (Rocephin 1 Gm (09/21/21 10:45) Azithromycin Injection (Zithromax Inject (09/21/21 11:00) Sequential Compression Device (09/21/21 10:33) Pharmacy To Dose (Pharmacy To Dose) (09/21/21 10:45) Metoprolol Tartrate (Ir) Tab (Lopressor (09/21/21 11:00) Nirmatrelvir/Ritonavir (Eua) (Paxlovid C (09/21/21 11:00) Azithromycin Tablet (Zithromax Tablet) (09/22/21 09:00) Albuterol Inhaler (Albuterol) (09/21/21 21:00) Albuterol Inhaler (Albuterol) (09/21/21 13:45) Echo Limited (09/21/21 10:33) Manual Differential (09/22/21 05:25) Levothyroxine Tablet (Synthroid Tablet) (09/22/21 09:00) Losartan Tablet (Cozaar Tablet) (09/22/21 09:00) Duloxetine Capsule (Cymbalta Capsule) (09/22/21 09:00) (Nf) Finasteride (09/22/21 09:00) Levothyroxine Tablet (Synthroid Tablet) (09/26/21 09:00) Enoxaparin Injection (Lovenox Injection) (09/22/21 21:00) Attending Discharge Inpt/Inobs (09/22/21 10:17) BRITTANEY SHEA MD Sep 22, 2021 10:26
[2021-09-26] MEDS ORDERED: LEVOTHYROXINE 100 MCG (LEVOTHROID) TAB PO SCH (09:00)
== END 2021-09-22 11:05 | disposition home or self-care (01) | DRG 177 ==
LOC: EDUNIT# 02:24 → ER 02:29 → CSD 07:18
PROVIDERS: ADMIT Family Medicine; ATTEND Family Medicine
PROC: 8E0ZXY6 Isolation (ICD-10-PCS; principal; 2021-09-21)
DX: U07.1 COVID-19 (principal); J12.82 Pneumonia due to coronavirus disease 2019; J96.01 Acute respiratory failure with hypoxia; E03.9 Hypothyroidism, unspecified; F41.9 Anxiety disorder, unspecified; F32.A Depression, unspecified; I50.9 Heart failure, unspecified; I11.0 Hypertensive heart disease with heart failure; M19.90 Unspecified osteoarthritis, unspecified site; K21.9 Gastro-esophageal reflux disease without esophagitis; Z82.49 Family history of ischemic heart disease and other diseases of the circulatory system; E87.70 Fluid overload, unspecified
CPT/HCPCS: 36415; 71045; 71275; 80048; 80053; 82550; 82553; 83735; 83874; 83880; 84484; 85007; 85025; 85027; 85379; 85610; 85652; 85730; 86141; 87636; 93005; 93041; 93308; 94640

== ENCOUNTER → 2021-10-19 | Outpatient (CLI) | payer BC ==
[~2021-10-19] MED LIST changes: +ALBU8.5H9 IH; +ASPI-1238 PO; +AZIT250T12 PO; +CATHETER FLUSH 10 ML SYR IVP PRN; +DULO60CA59 PO; +FINA1TAB16 PO; +GUAI600T43 PO; +LEVO100T7 PO; +LOSA100T57 PO; +MTP25TSR PO; +NIRM1TAB PO
[2021-10-19 09:43] VITALS: BP 162/81
== END ==
LOC: CARD 08:00
PROVIDERS: ATTEND Internal Medicine Cardiovascular Disease
DX: R94.31 Abnormal electrocardiogram [ECG] [EKG] (principal)
CPT/HCPCS: 78452; 93017; A9502

== ENCOUNTER 2021-10-26 08:52 | Day surgery (SDC) | payer BC ==
[~2021-10-26] VITALS: Ht 167 cm; Wt 123.8 kg
[~2021-10-26 08:52] MED LIST changes: -CATHETER FLUSH 10 ML SYR IVP PRN
[2021-10-26] MEDS ORDERED: LIDOCAINE 1% INJ 20 ML VIAL ONE (08:58)
[2021-10-26] MEDS ORDERED: HEParin (CATH LAB) 2,000 ML IV ONE (08:58)
[2021-10-26] MEDS ORDERED: NS IV 1000 ML 1,000 ML ONE (08:58)
[2021-10-26] MEDS ORDERED: ASPIRIN 81 MG CHEW (CHILDREN'S ASA) PO ONE (09:00)
[2021-10-26] MEDS ORDERED: CATHETER FLUSH 10 ML SYR IV PRN (09:00)
[2021-10-26] MEDS ORDERED: NS IV 1000 ML 1,000 ML IV ONE (09:00)
[2021-10-26] MEDS ORDERED: HYDR25TA4 PO ×2 (09:23)
[2021-10-26] MEDS ORDERED: ASPI-1238 PO ×2 (09:23)
[2021-10-26] MEDS ORDERED: VERAPAMIL 5 MG/2 ML (CALAN) VIAL IV ONE (10:07)
[2021-10-26] MEDS ORDERED: fentaNYL INJ 100 MCG/2 ML AMP ONE ×2 (10:07→12:07)
[2021-10-26] MEDS ORDERED: MIDAZOLAM 5 MG/5 ML (VERSED) VIAL ONE (10:07)
[2021-10-26] MEDS ORDERED: HEParin 1000 UNIT/ML (10ML VIAL) FOR BOLUS ONE (10:07)
[2021-10-26] MEDS ORDERED: NITRO DRIP 25000 MCG/D5W 250 ML IV ONE (10:08)
--- NOTE | 2021-10-26 10:20 | Pre-Op Note & Conscious Sedat ---
Pre-Operative Progress Note Date H&P Reviewed: Oct 26, 2021 Time H&P Reviewed: 10:19 History & Physical: H&P Reviewed, Patient Examed, No changes noted Pre-Op Diagnosis: Abnormal stress test Conscious Sedation Pre-Proced ASA Score 2 For ASA 3 and 4: Consider anesthesia and medical clearance. Also, for patients with a history of failed moderate sedation consider anesthesia. Airway Lungs Heart ASA score ASA 1: a normal healthy patient ASA 2: a patient with a mild systemic disease (mid diabetes, controlled hypertension, obesity ASA 3: a patient with a severe systemic disease that limits activity (angina, COPD, prior Myocardial infarction) ASA 4: a patient with an incapacitating disease that is a constant threat to life (CHF, renal failure) ASA 5: a moribund patient not expected to survive 24 hrs. (ruptured aneurysm) ASA 6: a declared brain- patient whose organs are being harvested. For emergent operations, add the letter E after the classification Mallampati Classification Grade 2 Sedation Plan Analgesia, Amnesia, Plan communicated to team members, Discussed options with patient/fam, Discussed risks with patient/fam The patient is an appropriate candidate to undergo the planned procedure, sedation, and anesthesia. The patient immediately re-assessed prior to indication. EDIS JOLLY JR, MD Oct 26, 2021 10:20
[2021-10-26] MEDS ORDERED: CLOPIDOGREL 300 MG (PLAVIX) TABLET PO ONE (11:28)
--- NOTE | 2021-10-26 12:11 | Cardiac Cath Report ---
CARDIAC CATHETERIZATION DATE OF PROCEDURE: 10/26/2021 INDICATION: Abnormal nuclear stress test. HISTORY: The patient is a 56 year old male with no previously known history of coronary artery disease who I recently saw in the office for an evaluation of dyspnea. I asked him to undergo a nuclear stress test which showed a large apical and septal perfusion defect with a small amount of inducible ischemia and an ejection fraction of 42%. This is considered a moderately abnormal stress test. As such, he is now referred for further evaluation with a cardiac catheterization. Given his current clinical status, he is considered vulnerable. He does not have any history of heart failure. PROCEDURES PERFORMED: 1. Left heart catheterization with hemodynamic measurements. 2. Diagnostic [place] coronary angiography. 3. Drug-eluting stent placement to mid left anterior descending coronary artery. PROCEDURE DESCRIPTION: After informed consent and in the fasting state, left heart catheterization was performed through the right femoral artery utilizing a 5 [place] micropuncture system by percutaneous approach. The micropuncture sheath was then exchanged for a 6 [place] sheath. I did attempt to gain access to the right radial artery but was not successful even with ultrasound guidance. Then aborted the right radial approach and changed over to the right femoral approach. Standard 5 [place] Andres catheters were utilized for the diagnostic portion of the procedure. A 6 [place] CLS 3.5 guide catheter was utilized for the percutaneous coronary intervention. All catheters were exchanged over a guidewire. Following the procedure, a right femoral angiogram revealed the vessel to be free of significant disease and the sheath entered above the bifurc ation. I then attempted to deploy a Perclose closure device but somehow the suture seemed to have deployed above the artery and deployment was not successful. Manual pressure was held and then a FemoStop was applied for hemostasis. RESULTS: HEMODYNAMICS: The aortic pressure was 134/86 mmHg. Ventricular pressure was 140/0 mmHg with a left ventricular end-diastolic pressure of 17 mmHg. There was no significant pressure gradient upon pullback across aortic valve. CORONARY ANGIOGRAPHY: Left main coronary artery: Free of significant disease. Left anterior descending coronary artery: There was a 90% stenosis in the midsegment just distal to the takeoff of the first septal revolving inventory clerk with BRADLY-2 flow. This vessel supplied to the ischemic area noted on the stress test. Left circumflex coronary artery: Free of significant disease. Ramus intermedius branch: There was a large ramus intermedius branch which was free of significant disease. Right coronary artery: Dominant and free of significant disease. PERCUTANEOUS CORONARY INTERVENTION: Percutaneous coronary intervention was carried out on the mid left anterior descending coronary through a 6 [place] CLS 3.5 guide catheter. The lesion was successfully crossed with a Revolver guidewire. I subsequently performed coronary angioplasty with a 3 x 12 mm Trek balloon at a pressure of 10 andrés for several inflations. Flow was improved. I subsequently deployed a 3.5 x 38 mm drug-eluting Xience Skypoint stent at a pressure of 16 andrés. There was some spasm in the distal segment of the vessel distal to the stent. Intracoronary nitroglycerin was administered and the distal spasm resolved. Following stent placement, there was 0% residual stenosis with BRADLY-3 flow. IMPRESSION: 1. Mildly elevated left ventricular end-diastolic pressure. 2. There was severe disease in the mid left anterior descending coronary artery. This corresponded to the ischemia noted on the stress test. 3. Status post drug-eluting stent placement to the mid left anterior descending coronary artery with a 3 x 38 mm Xience Skypoint stent with 0% residual stenosis and BRADLY-3 flow. 4. The patient is known to have normal left ventricular systolic function with an estimated ejection fraction of 60-65% by echocardiogram that was performed on 09/21/2021. The low ejection fraction noted on the stress test could be related to the coronary ischemia that was identified on the stress test. Certain portions of this document may have been dictated utilizing voice recognition technology. Inherent to this technology, typographical and grammatical errors may exist. As much as I am diligent to identify and correct these mistakes, some errors may remain in the document. EDIS JOLLY JR, MD Oct 26, 2021 12:11
[2021-10-26] MEDS ORDERED: PATIENT MAY USE OWN MEDS, ALL MC SCH (15:00)
[2021-10-26] MEDS: NS IV 1000 ML 1,000 ML IV SCH ×2 (15:04→23:17)
[2021-10-26 16:00] VITALS: BP 133/65
[2021-10-26 16:12] LABS: BASOPHILS # (AUTO) 0.1 10^3/uL (0.0-0.1); BASOPHILS % (AUTO) 1 % (0-10); EOSINOPHILS # (AUTO) 0.1 10^3/uL (0.0-0.3); EOSINOPHILS % (AUTO) 1 % (0-10); HEMATOCRIT 40 % (40-54); LYMPHOCYTES # (AUTO) 1.3 10^3/uL (1.0-4.0); LYMPHOCYTES % (AUTO) 13 % (12-44); MEAN CORPUSCULAR HEMOGLOBIN 29 pg (25-34); MEAN CORPUSCULAR HGB CONC 32 g/dL (32-36); MEAN CORPUSCULAR VOLUME 91 fL (80-99); MEAN PLATELET VOLUME 10.5 fL (9.0-12.2); MONOCYTES # (AUTO) 0.7 10^3/uL (0.0-1.0); MONOCYTES % (AUTO) 7 % (0-12); NEUTROPHILS # (AUTO) 8.1 10^3/uL (1.8-7.8); NEUTROPHILS % (AUTO) 78 % (42-75); WHITE BLOOD COUNT 10.3 10^3/uL (4.3-11.0)
[2021-10-26 16:13] LABS: PLATELET COUNT 178 10^3/uL (130-400)
[2021-10-26 17:18] VITALS: BP 133/65
[2021-10-26 20:00] VITALS: BP 101/81
[2021-10-26] MEDS ORDERED: ROSUVASTATIN 20 MG (CRESTOR) TABLET PO SCH (21:00)
[2021-10-26] MEDS ORDERED: oxyCODONE/APAP 10/325MG (PERCOCET 10) TABLET PO ONE (21:23)
[2021-10-26] MEDS: oxyCODONE/APAP 10/325MG (PERCOCET 10) TABLET PO PRN (21:25)
[2021-10-27] VITALS: BP 117/60
[2021-10-27 04:00] VITALS: BP 108/51
[2021-10-27] MEDS: oxyCODONE/APAP 10/325MG (PERCOCET 10) TABLET PO PRN (04:21)
[2021-10-27] MEDS ORDERED: LEVOTHYROXINE 100 MCG (LEVOTHROID) TAB PO SCH (06:30)
[2021-10-27 06:44] LABS: BASOPHILS # (AUTO) 0.1 10^3/uL (0.0-0.1); BASOPHILS % (AUTO) 1 % (0-10); EOSINOPHILS # (AUTO) 0.1 10^3/uL (0.0-0.3); EOSINOPHILS % (AUTO) 1 % (0-10); HEMATOCRIT 31 % (40-54); HEMOGLOBIN 9.8 g/dL (13.3-17.7); LYMPHOCYTES # (AUTO) 1.2 10^3/uL (1.0-4.0); LYMPHOCYTES % (AUTO) 11 % (12-44); MEAN CORPUSCULAR HEMOGLOBIN 29 pg (25-34); MEAN CORPUSCULAR HGB CONC 32 g/dL (32-36); MEAN CORPUSCULAR VOLUME 93 fL (80-99); MEAN PLATELET VOLUME 10.7 fL (9.0-12.2); MONOCYTES # (AUTO) 0.6 10^3/uL (0.0-1.0); MONOCYTES % (AUTO) 6 % (0-12); NEUTROPHILS # (AUTO) 9.1 10^3/uL (1.8-7.8); NEUTROPHILS % (AUTO) 82 % (42-75); PLATELET COUNT 194 10^3/uL (130-400)
[2021-10-27 06:49] LABS: POTASSIUM 4.2 MMOL/L (3.6-5.0)
[2021-10-27 06:51] LABS: CALCIUM 8.4 MG/DL (8.5-10.1)
[2021-10-27 06:55] LABS: CREATININE SERUM 0.99 MG/DL (0.60-1.30)
[2021-10-27] MEDS: NS IV 1000 ML 1,000 ML IV SCH (07:42)
[2021-10-27 08:00] VITALS: BP 115/56
[2021-10-27] MEDS ORDERED: ROSU20TA32 PO ×2 (08:40)
[2021-10-27] MEDS ORDERED: CLOP75TA28 PO ×2 (08:40)
[2021-10-27] MEDS ORDERED: OXYC1TAB12 PO ×2 (08:40)
[2021-10-27] MEDS ORDERED: ASPIRIN E.C. 81 MG (ECOTRIN) TAB PO SCH (09:00)
[2021-10-27] MEDS ORDERED: [UNRECOGNIZED DRUG - REMARK] PO SCH (09:00)
[2021-10-27] MEDS ORDERED: CLOPIDOGREL 75 MG (PLAVIX) TABLET PO SCH (09:00)
[2021-10-27] MEDS ORDERED: LOSARTAN 100 MG (COZAAR) TABLET PO SCH (09:00)
[2021-10-27 09:04] LABS: HEMOGLOBIN 9.8 g/dL (13.3-17.7)
--- NOTE | 2021-10-27 09:23 | Discharge Summary ---
Diagnosis/Chief Complaint Date of Admission 10/26/21 Date of Discharge 10/27/21 Discharge Date: Oct 27, 2021 Admission Diagnosis Admission Diagnosis Abnormal nuclear stress test. Discharge Diagnosis 1. Coronary artery disease with angina pectoris. 2. Primary hypertension. 3. Mixed hyperlipidemia. 4. Abnormal nuclear stress test. 5. Acquired hypothyroidism. 6. Postprocedural anemia. 7. Right groin hematoma complicating percutaneous coronary intervention. 8. Morbid obesity. Reason Hospital Visit Outpatient cardiac catheterization due to abnormal nuclear stress test. Discharge Summary Hospital Course Was the Problem List Reviewed?: Yes Hospital Course The patient was admitted for an outpatient cardiac catheterization. I was not able to gain access to the right radial artery so the procedure was done by the right femoral approach. He was found to have significant disease of the mid left anterior descending coronary artery. He was treated with 1 drug-eluting stent with an excellent angiographic result. The left circumflex and right coronary arteries were free of significant disease. Following the procedure, I attempted to deploy a Perclose closure device but the device did not properly deployed. Manual pressure was held. He did develop a significant hematoma following the procedure and by the following day this had spread towards his scrotum. However, he was able to ambulate and did not report any urinary dysfunction. His hemoglobin did drop but stabilized. As such, I elected to discharge him to home. I told him to avoid excessive exertion or lifting over 20 pounds for the next 5 days. Labs Laboratory Tests 10/26/21 16:03: Hemoglobin 13.0L, Neutrophils (%) (Auto) 78H, Neutrophils # (Auto) 8.1H 10/27/21 06:27: Hemoglobin 9.8#L, Neutrophils (%) (Auto) 82H, Neutrophils # (Auto) 9.1H, Red Blood Count 3.34L, Hematocrit 31L, Lymphocytes (%) (Auto) 11L, Glucose Level 126H, Calcium Level 8.4L, HDL Cholesterol 39L 10/27/21 08:59: Hemoglobin 9.8L, Hematocrit 31L Procedures None. Discharge Physical Examination Allergies: Coded Allergies: No Known Drug Allergies (Verified , 12/25/07) Vitals & I&Os Vital Signs Date Time Temp Pulse Resp B/P (MAP) Pulse Ox O2 Delivery O2 Flow Rate FiO2 10/27/21 08:00 94 Room Air 10/27/21 08:00 36.2 69 16 115/56 (75) General Appearance: Alert, Oriented X3, Cooperative, No Acute Distress HEENT: Atraumatic, EOMI, Mucous Memb Moist/[place] Respiratory: Clear to Auscultation, Normal Air Movement Cardiovascular: Regular Rate, Normal S1, Normal S2, No Murmurs Abdominal: Normal Bowel Sounds, Soft Extremities: No Clubbing, No Cyanosis, No Edema, Normal Pulses Skin: No Rashes, No Breakdown, Other (Very large right groin hematoma with extension into the scrotum and to some extent across the midline.) Neuro: Normal Speech, Strength at 5/5 X4 Ext, Cranial Nerves 3-12 NL Psych/Mental Status: Mental Status NL, Mood NL Discharge Home Medications Reviewed and agree with Discharge Medication list on patient's Discharge Instruction sheet Instructions to Patient/Family Please see electronic discharge instructions given to patient. Clinical Quality Measures End of Life/Advance Care Plan: Advance Care discuss with: patient Plan: initiate discussion Admission Status Admission Dx Abnormal stress test Admission Status: Other (Same Day Surgery) Reason for Inpatient Admission: Abnormal stress test. AMI/AHF: Ejection Fraction %: 60 Ejection Fraction: Above/Equal to 40 EIDS JOLLY JR, MD Oct 27, 2021 09:23
[2021-10-27] MEDS ORDERED: NITROGLYCERIN 0.4 MG SL TABS BTL 25'S SL PRN (10:45)
[2021-10-27] MEDS ORDERED: NITR0.4T42 SL ×2 (10:53)
[2021-10-31] MEDS ORDERED: LEVOTHYROXINE 150 MCG (LEVOTHROID) TAB PO SCH (06:30)
== END 2021-10-27 12:30 | disposition home or self-care (01) ==
LOC: CATH 08:52 → CSD 13:07 → CATH 10-27 12:30
PROVIDERS: ATTEND Internal Medicine Cardiovascular Disease
DX: I25.119 Atherosclerotic heart disease of native coronary artery with unspecified angina pectoris (principal); I10 Essential (primary) hypertension; E78.2 Mixed hyperlipidemia; E03.9 Hypothyroidism, unspecified; D64.89 Other specified anemias; E66.01 Morbid (severe) obesity due to excess calories; E87.70 Fluid overload, unspecified; S30.1XXA Contusion of abdominal wall, initial encounter; R94.39 Abnormal result of other cardiovascular function study; R94.31 Abnormal electrocardiogram [ECG] [EKG]; Z79.890 Hormone replacement therapy; Z79.82 Long term (current) use of aspirin; Z68.41 Body mass index [BMI] 40.0-44.9, adult; Z86.16 Personal history of COVID-19
CPT/HCPCS: 36140; 80048; 80061; 85014; 85018; 85025 ×2; 85347; 87081; 93005 ×2; 93458; C1725; C1760; C1874; C1887; C1894; C9600; 36415

== ENCOUNTER 2021-10-27 15:32 | Emergency (ER) | payer BC ==
[~2021-10-27] VITALS: Ht 167.7 cm; Wt 117.9 kg
[~2021-10-27 15:32] MED LIST changes: +CLOP75TA28 PO; +HYDR25TA4 PO; +NITR0.4T42 SL; +OXYC1TAB12 PO; +ROSU20TA32 PO
--- NOTE | 2021-10-27 16:38 | ED General ---
General Chief Complaint: Post OP Complications/Pain Stated Complaint: SWELLING Nursing Triage Note: pt to room by wheelchair with pt . pt states he had a cardiac cath done here yesterday. pt states there were a couple issues with the clotting factor they tried to use. pt was released from hospital today approx 2-3 hours lighter captain to er. pt reports going home, taking a nap, and swelling in groin has increased substantially. pt reports he is unable to urinate due to so much swelling Source of Information: Patient Exam Limitations: No Limitations (TONIO WRIGHT MD) History of Present Illness Date Seen by Provider: Oct 27, 2021 Time Seen by Provider: 16:20 Initial Comments [place] is a 56-year-old male who presents to the emergency room with a chief complaint of severe bruising and swelling to the groin, right inguinal area and lower abdomen after a heart cath 1 days ago. Patient underwent coronary angiography with stent placement yesterday and according to his tower air traffic control specialist the closure device "failed". The patient had significant bleeding in the groin that was monitored overnight in the hospital and through the morning. He was just discharged about 3 or 4 hours prior to rearrival to the emergency department. It seems he went home and laid down for a couple of hours and when he woke up he had significantly increased swelling in the scrotum with discomfort. No fevers or chills. No shortness of breath no palpitations. He came back to the hospital and went up to the fifth floor to see the ICU nurse who had been taking care of him and she advised that he check back into the emergency department. Patient is complaining of difficulty with urination, the only time he can urinate is in the shower. He states is just a trickle. Dr. Estes is aware of the patient here in the facility. Timing/Duration: 1-3 Hours Severity: Severe Associated Systoms: Other (difficulty urinating) (TONIO WRIGHT MD) Allergies and Home Medications Allergies Coded Allergies: No Known Drug Allergies (Verified , 12/25/07) Patient Home Medication List Home Medication List Reviewed: Yes (TONIO WRIGHT MD) Aspirin (Aspirin EC) 81 Mg Tablet., 81 MG PO DAILY, (Reported) Entered as Reported by: GRACE ESCALONA on 10/26/21 0923 Clopidogrel Bisulfate (Clopidogrel) 75 Mg Tablet, 75 MG PO DAILY Prescribed by: EDIS ESTES JR, MD on 10/27/21 0840 Finasteride (Finasteride) 1 Mg Tablet, 1 MG PO DAILY, (Reported) Entered as Reported by: JOSELUIS JC on 09/21/21 1148 Hydrochlorothiazide (Hydrochlorothiazide) 25 Mg Tablet, 25 MG PO DAILY, (Reported) Entered as Reported by: GRACE ESCALONA on 10/26/21 0923 Levothyroxine Sodium (Levothyroxine Sodium) 100 Mcg Tablet, 100 MCG PO ALONZO,MO,WE,FR,SA, (Reported) Entered as Reported by: JOSELUIS JC on 09/21/21 1148 Levothyroxine Sodium (Levothyroxine Sodium) 100 Mcg Tablet, 150 MCG PO , (Reported) Entered as Reported by: JOSELUIS JC on 09/21/21 1148 Losartan Potassium (Losartan Potassium) 100 Mg Tablet, 100 MG PO DAILY, (Reported) Entered as Reported by: JOSELUIS JC on 09/21/21 1148 Metoprolol Succinate (Metoprolol Succinate) 25 Mg Tab.er.24h, 25 MG PO DAILY, (Reported) Entered as Reported by: JOSELUIS JC on 09/21/21 1148 Nitroglycerin (Nitroglycerin) 0.4 Mg Tab.subl, 0.4 MG SL NEEDED PRN for CHEST PAIN (ANGINA) Prescribed by: EDIS ESTES JR, MD on 10/27/21 1053 Oxycodone HCl/Acetaminophen (Percocet 10-325 mg Tablet) 1 Each Tablet, 1 TAB PO Q4HR PRN for PAIN-MODERATE (5-7) Prescribed by: EDIS ESTES JR, MD on 10/27/21 0840 Rosuvastatin Calcium (Rosuvastatin Calcium) 20 Mg Tablet, 20 MG PO HS Prescribed by: EDIS ESTES JR, MD on 10/27/21 0840 Discontinued Medications Albuterol Sulfate (Proair Hfa) 90 Mcg Hfa.aer.ad, 0 GM IH RTBID Discontinued Reason: No Longer Taking Prescribed by: BRITTANEY SHEA on 09/22/21 1023 Aspirin (Aspirin EC) 81 Mg Tablet.dr, 81 MG PO DAILY Discontinued Reason: Duplicate Order Prescribed by: BRITTANEY SHEA on 09/22/21 1023 Azithromycin (Azithromycin) 250 Mg Tablet, 250 MG PO DAILY Discontinued Reason: No Longer Taking Prescribed by: BRITTANEY SHEA on 09/22/21 1023 Duloxetine HCl (Duloxetine HCl) 60 Mg Capsule.dr, 60 MG PO DAILY, (Reported) Discontinued Reason: No Longer Taking Entered as Reported by: JOSELUIS JC on 09/21/21 1148 Guaifenesin (Mucinex) 600 Mg Tab.er.12h, 600 MG PO BID Discontinued Reason: No Longer Taking Prescribed by: BRITTANEY SHEA on 09/22/21 1023 Nirmatrelvir/Ritonavir (Paxlovid Co-Pack (Eua)) 150 Mg X 2-100 Mg Tablet, 0 EACH PO BID Discontinued Reason: No Longer Taking Prescribed by: BRITTANEY SHEA on 09/22/21 1023 Review of Systems Review of Systems Constitutional: see HPI EENTM: no symptoms reported Respiratory: no symptoms reported Cardiovascular: no symptoms reported Gastrointestinal: no symptoms reported Genitourinary: no symptoms reported Musculoskeletal: no symptoms reported Skin: change in color (bruising to right groin with swelling; tender) Psychiatric/Neurological: No Symptoms Reported (TONIO WRIGHT MD) All Other Systems Reviewed Negative Unless Noted: Yes (TONIO WRIGHT MD) Past Hvvdnbn-Hzwsiy-Pecbwf Hx Immunizations Up To Date First/Initial COVID19 Vaccinat: May Second COVID19 Vaccination John: June (TONIO WRIGHT MD) Past Medical History Surgery/Hospitalization HX: hip replacement- L side Surgeries: Yes (BRONCHOSCOPY 09/01/2008 ) Tonsillectomy Respiratory: No Currently Using CPAP: No Currently Using BIPAP: No Cardiac: Yes Hypertension Neurological: No Sexually Transmitted Disease: No HIV/AIDS: No Genitourinary: No Gastrointestinal: No Musculoskeletal: No Arthritis Endocrine: Yes (OBESITY) Hypothyroidsim HEENT: No Loss of Vision: Denies Hearing Impairment: Denies Cancer: No Psychosocial: Yes Anxiety, Depression Integumentary: Yes (TAKES FINASTERIDE FOR MALE PATTERN BALDNESS) Blood Disorders: No (TONIO WRIGHT MD) Family Medical History Heart Disease, CAD Over 55 Years Old, Hypertension (TONIO WRIGHT MD) Physical Exam Vital Signs Vital Signs - First Documented 10/27/21 15:49 Temp 36.4 Pulse 85 Resp 16 B/P (MAP) 115/60 (78) Pulse Ox 96 (DARRELBERNARDO Ron DO) Vital Signs Capillary Refill : (TONIO WRIGHT MD) Height, Weight, BMI Height: 5'7.00" Weight: 270lbs. oz. 122.722993ke; 41.00 BMI Method: General Appearance: WD/WN Eyes: Bilateral Eye Normal Inspection Neck: Normal Inspection Respiratory: Lungs Clear, Normal Breath Sounds, No Accessory Muscle Use, No Respiratory Distress Cardiovascular: Regular Rate, Rhythm Gastrointestinal: Normal Bowel Sounds, Soft Extremity: Normal Capillary Refill, Normal Range of Motion, No Calf Tenderness, Other (significant ecchymoses to the right groin with massive swelling in the scrotum and purple discoloration. groin access site slightly irritated appearing) Neurologic/Psychiatric: Alert, Oriented x3, No Motor/Sensory Deficits, Normal Mood/Affect, buffet server II-XII Norm as Tested Skin: Normal Color, Warm/Dry, Other (as above) (TONIO WRIGHT MD) Progress/Results/Core Measures Suspected Sepsis SIRS Temperature: Pulse: 85 Respiratory Rate: 16 Laboratory Tests 10/27/21 16:00: White Blood Count 13.2H Blood Pressure 115 /60 Mean: 78 Laboratory Tests 10/27/21 16:00: Platelet Count 211 (TONIO WRIGHT MD) Results/Orders Lab Results Laboratory Tests Test 10/27/21 16:00 Range/Units White Blood Count 13.2 H 4.3-11.0 10^3/uL Red Blood Count 3.31 L 4.30-5.52 10^6/uL Hemoglobin 9.8 L 13.3-17.7 g/dL Hematocrit 30 L 40-54 % Mean Corpuscular Volume 90 80-99 fL Mean Corpuscular Hemoglobin 30 25-34 pg Mean Corpuscular Hemoglobin Concent 33 32-36 g/dL Red Cell Distribution Width 14.2 10.0-14.5 % Platelet Count 211 130-400 10^3/uL Mean Platelet Volume 10.7 9.0-12.2 fL Immature Granulocyte % (Auto) 1 % Neutrophils (%) (Auto) 85 H 42-75 % Lymphocytes (%) (Auto) 8 L 12-44 % Monocytes (%) (Auto) 6 0-12 % Eosinophils (%) (Auto) 0 0-10 % Basophils (%) (Auto) 0 0-10 % Neutrophils # (Auto) 11.2 H 1.8-7.8 10^3/uL Lymphocytes # (Auto) 1.1 1.0-4.0 10^3/uL Monocytes # (Auto) 0.8 0.0-1.0 10^3/uL Eosinophils # (Auto) 0.0 0.0-0.3 10^3/uL Basophils # (Auto) 0.0 0.0-0.1 10^3/uL Immature Granulocyte # (Auto) 0.1 0.0-0.1 10^3/uL (BERNARDO ROJO DO) My Orders Orders - BERNARDO ROJO DO Ed Iv/Invasive Line Start (10/27/21 20:22) Ns Iv 1000 Ml (Sodium Chloride 0.9%) (10/27/21 20:30) (BERNARDO ROJO DO) Medications Given in ED Current Medications Medications Dose Ordered Sig/Allison Route Start Time Stop Time Status Last Admin Dose Admin Fentanyl Citrate 50 mcg ONCE ONCE IVP 10/27/21 16:45 10/27/21 16:46 DC 10/27/21 17:03 50 MCG Lidocaine HCl 10 ml ONCE ONCE TOP 10/27/21 16:45 10/27/21 16:46 DC 10/27/21 17:03 10 ML (DONNA ROJOA Ron KAHN) Vital Signs/I&O 10/27/21 15:49 Temp 36.4 Pulse 85 Resp 16 B/P (MAP) 115/60 (78) Pulse Ox 96 (BERNARDO ROJO DO) Vital Signs/I&O Capillary Refill : (TONIO WRIGHT MD) Blood Pressure Mean: 78 Progress Note : Time: 17:54 Progress Note Notified by mapping technician as she was finishing the procedure of preliminary report finding of pseudoaneurysm 8 cm long by 4 cm x 3 cm. She was able to visualize the neck of the pseudoaneurysm. Official radiology interpretation is pending. (TONIO WRIGHT MD) Progress Note : Progress Note 1800--ASSUMED CARE FROM DR. WRIGHT. DR. ESTES IS HERE TO SEE PT. WILL BEGIN TRANSFER PROCESS, WE DO NOT HAVE ABILITY TO CARE FOR PT HERE. NO DETERIORATION IN PT'S CONDITION DURING ER STAY (BERNARDO ROJO DO) Diagnostic Imaging Comments US --PER RADIOLOGIST REPORT AT 181 FINDINGS: There is focal area of mixed echogenicity within the right groin that measures 7.6 x 4.0 x 3.5 cm. Color flow images show mixed color-flow. Doppler imaging shows to and fro flow. Findings are consistent with pseudoaneurysm. Common femoral vein is patent. Common femoral artery shows normal waveform. IMPRESSION: Doppler evaluation of right inguinal region confirms presence of a pseudoaneurysm. Reviewed: Reviewed by Me (BERNARDO ROJO DO) Departure Communication (Admissions) 175--CALLED ROGERIO--ON DIVERS[facility] 1799--CALLED [facility], PT'S INFORMATION FAXED, THEY WILL CALL BACK. 1835--CALLED [facility], THEY ARE STILL WAITING FOR PHYSICIAN TO CALL BACK, THEY WILL RE-PAGE. 184--SPOKE WITH DR. MCKAY JESSICA, CV SURGEON, ACCEPTS PT --TO GO TO ER. 1845--SPOKE WITH DR. PRAJAPATI, ER PHYSICIAN. ACCEPTS PT FOR TRANSFER 1914--MULTIPLE LOCAL EMS SERVICES CONTACTED FOR TRANSPORT. NONE ARE CURRENTLY AVAILABLE. [facility] IS OUT ON ANOTHER TRANSFER AND WILL NOT BE AVAILABLE UNTIL THAT CREW IS BACK IN [facility]. (BERNARDO ROJO DO) Impression Primary Impression: Femoral artery pseudo-aneurysm, right Additional Impressions: Hematoma of groin Qualified Codes: S30.1XXA - Contusion of abdominal wall, initial encounter CAD WITH STENT PLACEMENT Disposition: 02 XFER SHT-TRM HOSP Condition: Stable Transfer Transfer Reason: Exceeds level of care (NO CV SURGERY AVAILABLE HERE) Transfer Facility: [facility] Method of Transfer: EMS (BERNARDO ROJO DO) Departure-Patient Inst. Referrals: BRITTANEY SHEA MD (PCP/Family) Primary Care Physician TONIO WRIGHT MD Oct 27, 2021 16:38 BERNARDO ROJO DO Oct 27, 2021 18:17
[2021-10-27 16:43] LABS: BASOPHILS % (AUTO) 0 % (0-10); EOSINOPHILS % (AUTO) 0 % (0-10); HEMATOCRIT 30 % (40-54); HEMOGLOBIN 9.8 g/dL (13.3-17.7); LYMPHOCYTES # (AUTO) 1.1 10^3/uL (1.0-4.0); LYMPHOCYTES % (AUTO) 8 % (12-44); MEAN CORPUSCULAR HEMOGLOBIN 30 pg (25-34); MEAN CORPUSCULAR HGB CONC 33 g/dL (32-36); MEAN CORPUSCULAR VOLUME 90 fL (80-99); MEAN PLATELET VOLUME 10.7 fL (9.0-12.2); MONOCYTES # (AUTO) 0.8 10^3/uL (0.0-1.0); MONOCYTES % (AUTO) 6 % (0-12); NEUTROPHILS # (AUTO) 11.2 10^3/uL (1.8-7.8); NEUTROPHILS % (AUTO) 85 % (42-75); PLATELET COUNT 211 10^3/uL (130-400); WHITE BLOOD COUNT 13.2 10^3/uL (4.3-11.0)
[2021-10-27] MEDS ORDERED: LIDOCAINE UROJET 2% GEL 10 ML PKG TOP ONE (16:45)
[2021-10-27] MEDS ORDERED: fentaNYL INJ 100 MCG/2 ML AMP IVP ONE (16:45)
--- NOTE | 2021-10-27 18:10 | Diagnostic Imaging Report ---
INDICATION: Status post heart catheterization. Pain in the right groin. Rule out pseudoaneurysm. COMPARISON: None. TECHNIQUE: Targeted high frequency images were obtained of the right groin. Grayscale, color flow and duplex evaluation was performed. FINDINGS: There is focal area of mixed echogenicity within the right groin that measures 7.6 x 4.0 x 3.5 cm. Color flow images show mixed color-flow. Doppler imaging shows to and fro flow. Findings are consistent with pseudoaneurysm. Common femoral vein is patent. Common femoral artery shows normal waveform. IMPRESSION: Doppler evaluation of right inguinal region confirms presence of a pseudoaneurysm. Dictated by: Dictated on workstation # [id number]
[2021-10-27] MEDS ORDERED: NS IV 1000 ML 1,000 ML IV SCH (20:30)
[2021-10-27 21:25] VITALS: BP 115/60
== END 2021-10-27 21:33 | disposition short-term general hospital (02) ==
LOC: EDUNIT# 15:32 → ER 15:35
DX: S30.1XXA Contusion of abdominal wall, initial encounter (principal); I71.9 Aortic aneurysm of unspecified site, without rupture; I25.10 Atherosclerotic heart disease of native coronary artery without angina pectoris; Z95.5 Presence of coronary angioplasty implant and graft; E66.9 Obesity, unspecified; Z68.41 Body mass index [BMI] 40.0-44.9, adult; X58.XXXA Exposure to other specified factors, initial encounter
CPT/HCPCS: 36415; 51702; 85025; 93926

== ENCOUNTER → 2021-11-14 | Outpatient (CLI) | payer BC ==
[2021-11-14 15:24] LABS: BASOPHILS # (AUTO) 0.1 10^3/uL (0.0-0.1); BASOPHILS % (AUTO) 1 % (0-10); EOSINOPHILS # (AUTO) 0.2 10^3/uL (0.0-0.3); EOSINOPHILS % (AUTO) 2 % (0-10); HEMATOCRIT 35 % (40-54); HEMOGLOBIN 11.2 g/dL (13.3-17.7); LYMPHOCYTES # (AUTO) 1.2 10^3/uL (1.0-4.0); LYMPHOCYTES % (AUTO) 12 % (12-44); MEAN CORPUSCULAR HEMOGLOBIN 29 pg (25-34); MEAN CORPUSCULAR HGB CONC 32 g/dL (32-36); MEAN CORPUSCULAR VOLUME 90 fL (80-99); MEAN PLATELET VOLUME 9.1 fL (9.0-12.2); MONOCYTES # (AUTO) 0.7 10^3/uL (0.0-1.0); MONOCYTES % (AUTO) 7 % (0-12); NEUTROPHILS % (AUTO) 78 % (42-75); PLATELET COUNT 509 10^3/uL (130-400); WHITE BLOOD COUNT 10.3 10^3/uL (4.3-11.0)
[2021-11-14 15:34] LABS: ALBUMIN 3.6 GM/DL (3.2-4.5); POTASSIUM 4.5 MMOL/L (3.6-5.0)
[2021-11-14 15:36] LABS: CALCIUM 9.8 MG/DL (8.5-10.1)
[2021-11-14 15:37] LABS: TOTAL PROTEIN 7.6 GM/DL (6.4-8.2)
[2021-11-14 15:39] LABS: BILIRUBIN,TOTAL 0.6 MG/DL (0.1-1.0)
[2021-11-14 15:40] LABS: CREATININE SERUM 1.16 MG/DL (0.60-1.30)
== END ==
LOC: WOUNDCARE 13:14
PROVIDERS: ATTEND Family Medicine
DX: T81.31XA Disruption of external operation (surgical) wound, not elsewhere classified, initial encounter (principal); A49.9 Bacterial infection, unspecified; I97.630 Postprocedural hematoma of a circulatory system organ or structure following a cardiac catheterization; I25.10 Atherosclerotic heart disease of native coronary artery without angina pectoris; D50.0 Iron deficiency anemia secondary to blood loss (chronic); S75.001A Unspecified injury of femoral artery, right leg, initial encounter; N39.8 Other specified disorders of urinary system; E66.01 Morbid (severe) obesity due to excess calories; Z68.37 Body mass index [BMI] 37.0-37.9, adult
CPT/HCPCS: 80053; 82728; 83540; 83550; 84134; 85025; 87070; 87205; A6260; G0463; 36415; 99213

== ENCOUNTER → 2021-11-17 | Outpatient (CLI) | payer BC ==
[~2021-11-17] MED LIST changes: +CATHETER FLUSH 10 ML SYR IV PRN; +HOLD METFORMIN - RECEIVED CONTRAST 20 ML VIAL IV SCH; +IOHEXOL 350 MG/ML 100 ML (OMNIPAQUE 350) VIAL IV ONE; +NS 100 ML (IVPB) BAG IV ONE
--- NOTE | 2021-11-17 15:33 | Diagnostic Imaging Report ---
PROCEDURE: CT pelvis with contrast. TECHNIQUE: Oral and intravenous contrast were administered with pelvic CT performed. Auto Exposure Controls were utilized during the CT exam to meet ALARA standards for radiation dose reduction. INDICATION: History of large hematoma at the right hip with subsequent surgical cleanout. Wound care evaluation. COMPARISON: None FINDINGS: No acute fracture is seen in the pelvis. There are moderate degenerative changes in the sacroiliac joints. There is severe degenerative change at L5-S1 with grade 1 anterolisthesis as well as bilateral L5 pars defects. There are prominent enthesophytes at the anterior right iliac wing. There is a left hip arthroplasty. No cortical erosion or periosteal reaction is seen to suggest osteomyelitis on CT. There are multiple irregular rim-enhancing fluid collections in the right inguinal region. The largest pocket is seen anterior to the right rectus abdominous muscle measuring approximately 6.4 x 1.7 cm on axial imaging, and 6.1 cm craniocaudal. There are additional smaller fluid collections extending inferiorly into the inguinal region and the right anterior subcutaneous fat. The next largest collection is seen anterior to the common femoral artery, measuring approximately 3.7 x 3.1 cm on axial imaging, and about 6 cm craniocaudal. There is a soft tissue defect in this region as well, likely from prior surgery, which appears to be dressed and packed, with small foci of air underneath. There is skin thickening consistent with cellulitis. The edema does extend into the anterior pelvis, but no involvement of the perineum is seen. The scrotum is not included on this exam. No soft tissue gas is seen extending further into the soft tissues and no additional deep soft tissue involvement is appreciated in the right thigh. No free fluid is seen in the pelvis. A Camilo catheter is present. IMPRESSION: 1. Soft tissue defect in the right inguinal region with surrounding cellulitis and multiple small rim-enhancing fluid collections concerning for multiple small abscesses. 2. No CT evidence of osteomyelitis. 3. Marked degenerative change at L5-S1 with anterolisthesis and L5 pars defects. Dictated by: Dictated on workstation # [id number]
== END ==
LOC: RAD 12:15
PROVIDERS: ATTEND Family Medicine
DX: M47.817 Spondylosis without myelopathy or radiculopathy, lumbosacral region (principal); M43.17 Spondylolisthesis, lumbosacral region; T81.31XA Disruption of external operation (surgical) wound, not elsewhere classified, initial encounter; A49.9 Bacterial infection, unspecified; I97.630 Postprocedural hematoma of a circulatory system organ or structure following a cardiac catheterization; I25.10 Atherosclerotic heart disease of native coronary artery without angina pectoris; D50.0 Iron deficiency anemia secondary to blood loss (chronic); S75.001A Unspecified injury of femoral artery, right leg, initial encounter; E66.01 Morbid (severe) obesity due to excess calories; N39.8 Other specified disorders of urinary system; L03.314 Cellulitis of groin; R63.4 Abnormal weight loss
CPT/HCPCS: 72193

== ENCOUNTER → 2021-11-29 | Outpatient (CLI) | payer BC ==
[~2021-11-29] MED LIST changes: -CATHETER FLUSH 10 ML SYR IV PRN; -HOLD METFORMIN - RECEIVED CONTRAST 20 ML VIAL IV SCH; -IOHEXOL 350 MG/ML 100 ML (OMNIPAQUE 350) VIAL IV ONE; -NS 100 ML (IVPB) BAG IV ONE
== END ==
LOC: WOUNDCARE 12:57
PROVIDERS: ATTEND Family Medicine
DX: T81.31XA Disruption of external operation (surgical) wound, not elsewhere classified, initial encounter (principal); A49.9 Bacterial infection, unspecified; I97.630 Postprocedural hematoma of a circulatory system organ or structure following a cardiac catheterization; I25.10 Atherosclerotic heart disease of native coronary artery without angina pectoris; D50.0 Iron deficiency anemia secondary to blood loss (chronic); R63.4 Abnormal weight loss; S75.009A Unspecified injury of femoral artery, unspecified leg, initial encounter; E66.01 Morbid (severe) obesity due to excess calories; N39.8 Other specified disorders of urinary system; I96 Gangrene, not elsewhere classified
CPT/HCPCS: 11042; 11045; G0463

== ENCOUNTER → 2021-12-04 | Outpatient (CLI) | payer BC | LOC: WOUNDCARE 10:48 | PROVIDERS: ATTEND Family Medicine | DX: T81.31XA Disruption of external operation (surgical) wound, not elsewhere classified, initial encounter (principal); A49.9 Bacterial infection, unspecified; I97.630 Postprocedural hematoma of a circulatory system organ or structure following a cardiac catheterization; I25.10 Atherosclerotic heart disease of native coronary artery without angina pectoris; R63.4 Abnormal weight loss; S75.009A Unspecified injury of femoral artery, unspecified leg, initial encounter; E66.01 Morbid (severe) obesity due to excess calories; E44.0 Moderate protein-calorie malnutrition; I96 Gangrene, not elsewhere classified | CPT/HCPCS: 11042; 11045; G0463 ==

== ENCOUNTER → 2021-12-13 | Outpatient (CLI) | payer BC | LOC: WOUNDCARE 11:05 | PROVIDERS: ATTEND Family Medicine | DX: T81.31XA Disruption of external operation (surgical) wound, not elsewhere classified, initial encounter (principal); I97.610 Postprocedural hemorrhage of a circulatory system organ or structure following a cardiac catheterization; I25.10 Atherosclerotic heart disease of native coronary artery without angina pectoris; R63.4 Abnormal weight loss; S75.001A Unspecified injury of femoral artery, right leg, initial encounter; E66.01 Morbid (severe) obesity due to excess calories; E44.0 Moderate protein-calorie malnutrition; I96 Gangrene, not elsewhere classified | CPT/HCPCS: 11042; 11045; G0463 ==

== ENCOUNTER → 2021-12-15 | Outpatient (CLI) | payer BC ==
--- NOTE | 2021-12-15 14:38 | Diagnostic Imaging Report ---
INDICATION: Pain in the right upper extremity. Palpable lump COMPARISON: None TECHNIQUE: Duplex, perry-scale and color-flow imaging of the right upper extremity venous system was performed. FINDINGS: Right jugular and subclavian veins show no evidence of intraluminal thrombosis. The axillary, brachial, basilic and cephalic veins are patent. These vessels show normal compressibility, color flow and Doppler augmentation. Focused sonographic evaluation of the patient's palpable area of concern demonstrates a slightly relatively hyperechoic fairly well-circumscribed solid-appearing nodule within the subcutaneous fat that measures 1.1 x 0.4 x 0.8 cm. IMPRESSION: 1. No evidence of DVT in the right upper extremity. 2. Patient's palpable area of concern appears to correspond to probable small lipoma. Benignity cannot be confirmed based on ultrasound alone. Correlation with CT or MRI is recommended. Dictated by: Dictated on workstation # [id number]
== END ==
LOC: RAD 13:00
PROVIDERS: ATTEND Family Medicine
DX: M79.621 Pain in right upper arm (principal); R22.31 Localized swelling, mass and lump, right upper limb

== ENCOUNTER → 2021-12-20 | Outpatient (CLI) | payer BC | LOC: WOUNDCARE 10:56 | PROVIDERS: ATTEND Family Medicine | DX: T81.31XA Disruption of external operation (surgical) wound, not elsewhere classified, initial encounter (principal); I97.630 Postprocedural hematoma of a circulatory system organ or structure following a cardiac catheterization; I25.10 Atherosclerotic heart disease of native coronary artery without angina pectoris; R53.1 Weakness; S75.001A Unspecified injury of femoral artery, right leg, initial encounter; E44.1 Mild protein-calorie malnutrition | CPT/HCPCS: 11042; G0463 ==

== ENCOUNTER → 2021-12-27 | Outpatient (CLI) | payer BC | LOC: WOUNDCARE 11:05 | PROVIDERS: ATTEND Family Medicine | DX: T81.31XA Disruption of external operation (surgical) wound, not elsewhere classified, initial encounter (principal); I97.630 Postprocedural hematoma of a circulatory system organ or structure following a cardiac catheterization; I25.10 Atherosclerotic heart disease of native coronary artery without angina pectoris; R63.4 Abnormal weight loss; S75.001A Unspecified injury of femoral artery, right leg, initial encounter; E66.01 Morbid (severe) obesity due to excess calories; E44.0 Moderate protein-calorie malnutrition; B37.2 Candidiasis of skin and nail | CPT/HCPCS: 11042; G0463 ==

== ENCOUNTER → 2022-01-03 | Outpatient (CLI) | payer BC ==
--- NOTE | 2022-01-03 18:15 | Diagnostic Imaging Report ---
Exam: CT right forearm without contrast. Date: January 03, 2022. Indication: 56-year-old male, nodule of the right forearm. Comparison: None. Technique: Axial CT images of the right forearm were obtained without contrast. Coronal and sagittal reformats were obtained and provided. All CT scans use one or more of the following dose optimizing techniques: automated exposure control, MA and/or KvP adjustment based on patient size and exam type or iterative reconstruction. Findings: There is no acute fracture. There is no cortical or aggressive bone destruction. There is no identified bone lesion. There is no identified focal fluid collection or soft tissue mass on noncontrast imaging assessment. The marker denoting area of focal concern is at the level of the proximal to mid radius and ulna on axial image 67. There is very mild underlying subcutaneous edema. There are collateral vessels in the subcutaneous tissues at the level of the forearm. Impression: 1. No identified soft tissue mass or focal fluid collection on noncontrast imaging assessment. 2. Very mild subcutaneous edema underlying the area of focal concern. 3. No identified bone lesion or acute bony abnormality. Dictated by: Dictated on workstation # [id number]
== END ==
LOC: RAD 15:55
PROVIDERS: ATTEND Family Medicine
DX: R22.31 Localized swelling, mass and lump, right upper limb (principal); R60.0 Localized edema
CPT/HCPCS: 73200

== ENCOUNTER → 2022-01-03 | Outpatient (CLI) | payer BC | LOC: WOUNDCARE 11:02 | PROVIDERS: ATTEND Family Medicine | DX: T81.31XA Disruption of external operation (surgical) wound, not elsewhere classified, initial encounter (principal); I97.630 Postprocedural hematoma of a circulatory system organ or structure following a cardiac catheterization; I25.10 Atherosclerotic heart disease of native coronary artery without angina pectoris; R63.4 Abnormal weight loss; S75.001A Unspecified injury of femoral artery, right leg, initial encounter; E66.01 Morbid (severe) obesity due to excess calories; E44.0 Moderate protein-calorie malnutrition; I96 Gangrene, not elsewhere classified | CPT/HCPCS: 11042; 87070; 87205; A6212; G0463 ==

== ENCOUNTER → 2022-01-10 | Outpatient (CLI) | payer BC | LOC: WOUNDCARE 11:01 | PROVIDERS: ATTEND Family Medicine | DX: T81.31XA Disruption of external operation (surgical) wound, not elsewhere classified, initial encounter (principal); I97.630 Postprocedural hematoma of a circulatory system organ or structure following a cardiac catheterization; I25.10 Atherosclerotic heart disease of native coronary artery without angina pectoris; R63.4 Abnormal weight loss; S75.001A Unspecified injury of femoral artery, right leg, initial encounter; E46 Unspecified protein-calorie malnutrition; I96 Gangrene, not elsewhere classified | CPT/HCPCS: 11042; A6212; G0463 ==

== ENCOUNTER → 2022-01-18 | Outpatient (CLI) | payer BC | LOC: WOUNDCARE 08:06 | PROVIDERS: ATTEND Family Medicine | DX: T81.31XA Disruption of external operation (surgical) wound, not elsewhere classified, initial encounter (principal); I97.630 Postprocedural hematoma of a circulatory system organ or structure following a cardiac catheterization; I25.10 Atherosclerotic heart disease of native coronary artery without angina pectoris; S75.001A Unspecified injury of femoral artery, right leg, initial encounter; E66.01 Morbid (severe) obesity due to excess calories; E44.0 Moderate protein-calorie malnutrition; R63.4 Abnormal weight loss; Z68.37 Body mass index [BMI] 37.0-37.9, adult | CPT/HCPCS: 11042; A6212; G0463 ==

== ENCOUNTER → 2022-01-24 | Outpatient (CLI) | payer BC | LOC: WOUNDCARE 11:10 | PROVIDERS: ATTEND Family Medicine | DX: T81.31XA Disruption of external operation (surgical) wound, not elsewhere classified, initial encounter (principal); I97.630 Postprocedural hematoma of a circulatory system organ or structure following a cardiac catheterization; I25.10 Atherosclerotic heart disease of native coronary artery without angina pectoris; R63.4 Abnormal weight loss; S75.091A Other specified injury of femoral artery, right leg, initial encounter; E66.01 Morbid (severe) obesity due to excess calories; E44.0 Moderate protein-calorie malnutrition | CPT/HCPCS: 11042; A6212; G0463 ==

== ENCOUNTER → 2022-01-31 | Outpatient (CLI) | payer BC | LOC: WOUNDCARE 11:01 | PROVIDERS: ATTEND Family Medicine | DX: T81.31XA Disruption of external operation (surgical) wound, not elsewhere classified, initial encounter (principal); S75.002A Unspecified injury of femoral artery, left leg, initial encounter; I97.630 Postprocedural hematoma of a circulatory system organ or structure following a cardiac catheterization; I25.10 Atherosclerotic heart disease of native coronary artery without angina pectoris; R63.4 Abnormal weight loss; E66.01 Morbid (severe) obesity due to excess calories; E44.0 Moderate protein-calorie malnutrition; Z68.37 Body mass index [BMI] 37.0-37.9, adult; X58.XXXA Exposure to other specified factors, initial encounter | CPT/HCPCS: 11042; A6212; G0463 ==

== ENCOUNTER → 2022-02-07 | Outpatient (CLI) | payer BC | LOC: WOUNDCARE 10:51 | PROVIDERS: ATTEND Family Medicine | DX: T81.31XA Disruption of external operation (surgical) wound, not elsewhere classified, initial encounter (principal); S75.001A Unspecified injury of femoral artery, right leg, initial encounter; I97.630 Postprocedural hematoma of a circulatory system organ or structure following a cardiac catheterization; I25.10 Atherosclerotic heart disease of native coronary artery without angina pectoris; E66.01 Morbid (severe) obesity due to excess calories; E44.0 Moderate protein-calorie malnutrition; R63.4 Abnormal weight loss; X58.XXXA Exposure to other specified factors, initial encounter; Z68.37 Body mass index [BMI] 37.0-37.9, adult | CPT/HCPCS: 17250; G0463 ==

== ENCOUNTER → 2022-02-14 | Outpatient (CLI) | payer BC | LOC: WOUNDCARE 11:07 | PROVIDERS: ATTEND Family Medicine | DX: I96 Gangrene, not elsewhere classified (principal); T81.31XA Disruption of external operation (surgical) wound, not elsewhere classified, initial encounter; I97.630 Postprocedural hematoma of a circulatory system organ or structure following a cardiac catheterization; I25.10 Atherosclerotic heart disease of native coronary artery without angina pectoris; R63.4 Abnormal weight loss; S75.001A Unspecified injury of femoral artery, right leg, initial encounter; E66.01 Morbid (severe) obesity due to excess calories; E44.0 Moderate protein-calorie malnutrition; B37.2 Candidiasis of skin and nail; Z68.37 Body mass index [BMI] 37.0-37.9, adult; X58.XXXA Exposure to other specified factors, initial encounter | CPT/HCPCS: 11042; A6197; A6212; G0463 ==

== ENCOUNTER → 2022-02-21 | Outpatient (CLI) | payer BC | LOC: WOUNDCARE 10:50 | PROVIDERS: ATTEND Family Medicine | DX: T81.31XA Disruption of external operation (surgical) wound, not elsewhere classified, initial encounter (principal); I97.630 Postprocedural hematoma of a circulatory system organ or structure following a cardiac catheterization; I25.10 Atherosclerotic heart disease of native coronary artery without angina pectoris; R63.4 Abnormal weight loss; E66.01 Morbid (severe) obesity due to excess calories; S75.001A Unspecified injury of femoral artery, right leg, initial encounter; E44.0 Moderate protein-calorie malnutrition; B37.2 Candidiasis of skin and nail; Z68.37 Body mass index [BMI] 37.0-37.9, adult; X58.XXXA Exposure to other specified factors, initial encounter | CPT/HCPCS: 99212 ==